=== PATIENT | female | born 1970 | race Caucasian/White ===

== ENCOUNTER 2017-08-26 13:08 | Emergency (ER) | payer OTHER ==
[2017-08-26] MEDS ORDERED: LISI40TAB PO (13:27)
[2017-08-26 15:08] LABS: BASO # 0.1 10^3/uL (0.0-0.2); BASO % 0.6 % (0.0-1.0); EOS # 0.1 10^3/uL (0.0-0.50); EOS % 0.9 % (0.0-3.0); IMMATURE GRANULOCYTE % 0.4 % (0-0); LYMPH # 2.1 10^3/uL (1.5-4.5); LYMPH % 12.6 % (24.0-44.0); MEAN CORPUSCULAR HEMOGLOBIN 28.8 pg (27.0-33.0); MEAN CORPUSCULAR HGB CONC 32.5 g/dl (32.0-36.5); MEAN CORPUSCULAR VOLUME 88.5 fl (80.0-96.0); MONO # 0.8 10^3/uL (0.0-0.8); NEUTROPHILS # 13.1 10^3/uL (1.8-7.7); NEUTROPHILS % 80.5 % (36.0-66.0); PLATELET COUNT, AUTOMATED 384 10^3/uL (150-450); RED CELL DISTRIBUTION WIDTH 14.6 % (11.5-14.5); WHITE BLOOD COUNT 16.2 10^3/uL (4.0-10.0)
[2017-08-26 15:26] LABS: ANION GAP 9 MEQ/L (8-16); BLOOD UREA NITROGEN 8 MG/DL (7-18); CALCIUM LEVEL 8.9 MG/DL (8.5-10.1); CARBON DIOXIDE LEVEL 27 MEQ/L (21-32); CHLORIDE LEVEL 105 MEQ/L (98-107); CREATININE FOR GFR 0.84 MG/DL (0.55-1.02); GLOMERULAR FILTRATION RATE > 60.0 (>58); GLUCOSE, FASTING 100 MG/DL (70-105); POTASSIUM SERUM 4.1 MEQ/L (3.5-5.1); SODIUM LEVEL 141 MEQ/L (136-145)
[2017-08-26] MEDS ORDERED: NS 1,000 ML IV ONE (15:45)
--- NOTE | 2017-08-26 15:58 | REP ---
CT Head without contrast HISTORY: Syncope COMPARISON: None There is no intraparenchymal hemorrhage, acute infarct, mass or midline shift. The ventricular system is normal in appearance. There is no extra cerebral collection. There is no fracture. The visualized sinuses are clear. IMPRESSION: There is no intracranial lesion. Signed by Kwame Osei MD 08/26/2017 03:50 P
[2017-08-26 16:29] VITALS: BP 167/100
[2017-08-26 16:55] LABS: METHADONE URINE NEGATIVE (NEGATIVE)
--- NOTE | 2017-08-26 18:08 | REP ---
CHEST, TWO VIEWS: There is no evidence of acute infiltrate. No pleural effusion is seen. The heart is normal in size. The mediastinal silhouette is unremarkable. The visualized osseous structures are intact. IMPRESSION: No acute pulmonary disease. Signed by Jonah Acharya MD 08/27/2017 05:18 P
--- NOTE | 2017-08-26 18:15 | ECGEPIP ---
Stationary ECG Study [facility] - ED Test Date: 2017-08-26 Pat Name: LUMA MILLAN Department: Room: - Gender: F Machine Installer: sheyla : 1970 Requested By: Marta Acosta Order Number: [id number] Reading MD: Alex Rosa Measurements Intervals [place] Rate: 75 P: 63 [place]: 142 QRS: 55 QRSD: 95 T: 66 QT: 377 QTc: 423 Interpretive Statements SINUS RHYTHM LEFT ATRIAL ENLARGEMENT INC. RBBB NO PRIORS Electronically Signed On 08-26-2017 18:15:25 EDT by Alex Rosa
== END 2017-08-26 17:37 | disposition home or self-care (01) ==
LOC: EDBD 13:08 → M ED 13:08
DX: R55 Syncope and collapse (principal); I51.9 Heart disease, unspecified; I10 Essential (primary) hypertension; F17.200 Nicotine dependence, unspecified, uncomplicated; Z79.899 Other long term (current) drug therapy; Z88.0 Allergy status to penicillin

== ENCOUNTER → 2018-02-24 | Outpatient (REF) | payer OTHER ==
[2018-02-24 17:26] LABS: CHOLESTEROL LEVEL 152 MG/DL (<200); CHOLESTEROL RISK RATIO 5.428 (<5); HDL CHOLESTEROL 28 MG/DL (>40); LDL CHOLESTEROL 98.8 MG/DL (<100); NON-HDL-C 124 MG/DL; TRIGLYCERIDES LEVEL 126 MG/DL (<150)
[2018-02-24 17:39] LABS: TOTAL 25(OH) VITAMIN D 20.7 NG/ML (30.0-100.0)
== END ==
LOC: M SFHCCLAY 12:29
DX: E78.5 Hyperlipidemia, unspecified (principal); E55.9 Vitamin D deficiency, unspecified

== ENCOUNTER → 2018-07-01 | Outpatient (REF) | payer OTHER ==
[2018-07-01 11:42] LABS: HEMATOCRIT 45.3 % (36.0-47.0); MEAN CORPUSCULAR HEMOGLOBIN 29.1 pg (27.0-33.0); MEAN CORPUSCULAR HGB CONC 33.1 g/dl (32.0-36.5); MEAN CORPUSCULAR VOLUME 87.8 fl (80.0-96.0); PLATELET COUNT, AUTOMATED 359 10^3/uL (150-450); RED BLOOD COUNT 5.16 10^6/uL (4.00-5.40); RED CELL DISTRIBUTION WIDTH 14.5 % (11.5-14.5); WHITE BLOOD COUNT 11.1 10^3/uL (4.0-10.0)
[2018-07-01 11:57] LABS: ALBUMIN 3.5 GM/DL (3.2-5.2); ALBUMIN/GLOBULIN RATIO 0.95 (1.00-1.93); ALKALINE PHOSPHATASE 82 U/L (45-117); ALT/SGPT 20 U/L (12-78); ANION GAP 9 MEQ/L (8-16); AST/SGOT 17 U/L (7-37); BILIRUBIN,TOTAL 0.5 MG/DL (0.2-1.0); BLOOD UREA NITROGEN 12 MG/DL (7-18); CALCIUM LEVEL 8.9 MG/DL (8.5-10.1); CARBON DIOXIDE LEVEL 25 MEQ/L (21-32); CHLORIDE LEVEL 108 MEQ/L (98-107); CHOLESTEROL LEVEL 141 MG/DL (<200); CHOLESTEROL RISK RATIO 4.548 (<5); CREATININE FOR GFR 0.84 MG/DL (0.55-1.30); GLOMERULAR FILTRATION RATE > 60.0 (>58); GLUCOSE, FASTING 83 MG/DL (70-100); HDL CHOLESTEROL 31 MG/DL (>40); LDL CHOLESTEROL 87.8 MG/DL (<100); NON-HDL-C 110 MG/DL; POTASSIUM SERUM 4.7 MEQ/L (3.5-5.1); SODIUM LEVEL 142 MEQ/L (136-145); TOTAL PROTEIN 7.2 GM/DL (6.4-8.2); TRIGLYCERIDES LEVEL 111 MG/DL (<150)
[2018-07-01 12:02] LABS: TOTAL 25(OH) VITAMIN D 22.7 NG/ML (30.0-100.0)
== END ==
LOC: M SFHCCLAY 08:30
DX: I10 Essential (primary) hypertension (principal); E78.5 Hyperlipidemia, unspecified; E55.9 Vitamin D deficiency, unspecified
CPT/HCPCS: 80053

== ENCOUNTER → 2019-06-12 | Outpatient (REF) | payer OTHER ==
[~2019-06-12] MED LIST: LISI40TA PO
[2019-06-12 16:39] LABS: HEMATOCRIT 45.6 % (36.0-47.0); HEMOGLOBIN 15.1 g/dl (12.0-15.5); MEAN CORPUSCULAR HEMOGLOBIN 29.1 pg (27.0-33.0); MEAN CORPUSCULAR HGB CONC 33.1 g/dl (32.0-36.5); MEAN CORPUSCULAR VOLUME 87.9 fl (80.0-96.0); PLATELET COUNT, AUTOMATED 340 10^3/uL (150-450); RED BLOOD COUNT 5.19 10^6/uL (4.00-5.40); WHITE BLOOD COUNT 9.9 10^3/uL (4.0-10.0)
[2019-06-12 16:49] LABS: ALBUMIN 3.4 GM/DL (3.2-5.2); ALT/SGPT 22 U/L (12-78); BILIRUBIN,TOTAL 0.4 MG/DL (0.2-1.0); BLOOD UREA NITROGEN 13 MG/DL (7-18); CALCIUM LEVEL 8.4 MG/DL (8.5-10.1); CARBON DIOXIDE LEVEL 24 MEQ/L (21-32); CHLORIDE LEVEL 109 MEQ/L (98-107); CHOLESTEROL LEVEL 172 MG/DL (<200); CHOLESTEROL RISK RATIO 6.142 (<5); CREATININE FOR GFR 0.78 MG/DL (0.55-1.30); GLOMERULAR FILTRATION RATE > 60.0 (>51); GLUCOSE, FASTING 86 MG/DL (70-100); HDL CHOLESTEROL 28 MG/DL (>40); LDL CHOLESTEROL 115 MG/DL (<100); NON-HDL-C 144 MG/DL; POTASSIUM SERUM 4.4 MEQ/L (3.5-5.1); SODIUM LEVEL 140 MEQ/L (136-145); TOTAL PROTEIN 6.8 GM/DL (6.4-8.2); TRIGLYCERIDES LEVEL 146 MG/DL (<150)
[2019-06-12 16:53] LABS: TOTAL 25(OH) VITAMIN D 26.4 NG/ML (30.0-100.0)
== END ==
LOC: M SFHCCLAY 13:15
PROVIDERS: ATTEND Nurse Practitioner Family
DX: I10 Essential (primary) hypertension (principal); E78.5 Hyperlipidemia, unspecified; E55.9 Vitamin D deficiency, unspecified

== ENCOUNTER → 2019-10-09 | Outpatient (REF) | payer OTHER ==
[2019-10-09 16:51] LABS: CHOLESTEROL RISK RATIO 6.793 (<5)
[2019-10-09 17:00] LABS: TOTAL 25(OH) VITAMIN D 27.6 NG/ML (30.0-100.0)
== END ==
LOC: M SFHCCLAY 12:56
PROVIDERS: ATTEND Nurse Practitioner Family
DX: E78.5 Hyperlipidemia, unspecified (principal); E55.9 Vitamin D deficiency, unspecified

== ENCOUNTER → 2020-01-08 | Outpatient (REF) | payer OTHER ==
[2020-01-08 12:19] LABS: ALBUMIN 3.7 GM/DL (3.2-5.2); BILIRUBIN,DIRECT 0.2 MG/DL (0.0-0.2); BILIRUBIN,TOTAL 1.2 MG/DL (0.2-1.0); CHOLESTEROL RISK RATIO 4.185 (<5)
[2020-01-08 13:45] LABS: TOTAL 25(OH) VITAMIN D 32.7 NG/ML (30.0-100.0)
== END ==
LOC: M SFHCCLAY 08:24
PROVIDERS: ATTEND Nurse Practitioner Family
DX: E78.5 Hyperlipidemia, unspecified (principal); E55.9 Vitamin D deficiency, unspecified

== ENCOUNTER → 2020-01-28 | Outpatient (CLI) | payer OTHER ==
--- NOTE | 2020-01-28 15:52 | REP ---
PA and lateral chest: There are no comparisons. The lung cabrera are clear. The cardiac size is normal. The ellie, mediastinum, and skeletal structures are unremarkable. Impression: Negative PA and lateral chest. Electronically Signed by Jonah Jarrett MD 01/28/2020 03:43 P
== END ==
LOC: M CLY 14:59
PROVIDERS: ATTEND Family Medicine
DX: R63.4 Abnormal weight loss (principal); R13.10 Dysphagia, unspecified

== ENCOUNTER → 2020-02-05 | Outpatient (CLI) | payer OTHER ==
[~2020-02-05] MED LIST changes: +E-Z-GAS II EFFERVESCENT PACKET (SODIUM BICARB./CITRIC ACID/SIMETHICONE) As Ordered ONE; +E-Z-HD 98% w/w 340GM SUSP BTL As Ordered ONE; +E-Z-PAQUE 96% w/w SUSP 176GM BTL As Ordered ONE
--- NOTE | 2020-02-05 18:44 | REP ---
AIR CONTRAST ESOPHAGRAM AND UPPER GI The procedure was performed under the direct supervision of Dr. Carson. The images were reviewed with Dr. Carson. The program director scouting film shows no organomegaly or pathological masses. The intestinal gas pattern is nonspecific. There are surgical clips noted in the right upper quadrant. A single view PA chest x-ray is submitted as a program director scouting film. The superior mediastinal structures are midline. Heart size within normal limits. Lungs are clear. There are surgical clips noted in the right upper quadrant. Liquid barium and gas producing granules and given in the erect position as well as liquid barium in the prone oblique positions in order to perform a double contrast esophagram and upper GI examination. The oral and pharyngeal stages of deglutition are unremarkable. In the mid esophagus there is malignant-appearing circumferential mucosal irregularity measuring 4.8 cm long by 5 mm at its narrowest. There is shouldering with some dilation of the esophagus proximally. Recommend endoscopy for further evaluation. There is gastroesophageal reflux demonstrated to below the level of the lakesha. The stomach saldana are normally aligned. The rugal folds are smooth and regular. There is no gastritis neoplasm or ulcer disease. The duodenal saldana are normally aligned. The mucosal folds are smooth and regular. There is no duodenitis pancreatitis peptic ulcer disease or neoplasm. The visualized portion of the proximal small bowel appears normal in course and caliber. Impression: In the mid esophagus there is malignant-appearing, circumferential mucosal irregularity measuring 4.8 cm long by 5 mm at its narrowest. There is shouldering with some dilation of the esophagus proximally. Recommend endoscopy for further evaluation. There is gastroesophageal reflux demonstrated to below the level of the lakesha. 1.6 minutes of fluoroscopy time was utilized for this procedure. Electronically Signed by JUSTIN Worthington 02/05/2020 04:59 P Electronically Signed by Willie Carson MD 02/05/2020 06:30 P
== END ==
LOC: M RAD 08:12
PROVIDERS: ATTEND Family Medicine
DX: R13.10 Dysphagia, unspecified (principal); R63.4 Abnormal weight loss

== ENCOUNTER 2020-02-15 12:03 | Day surgery (SDC) | payer OTHER ==
[~2020-02-15] VITALS: Ht 152.4 cm; Wt 52.1 kg
[~2020-02-15 12:03] MED LIST changes: +ALLE10TA32 PO; +ATEN50TA2 PO; -E-Z-GAS II EFFERVESCENT PACKET (SODIUM BICARB./CITRIC ACID/SIMETHICONE) As Ordered ONE; -E-Z-HD 98% w/w 340GM SUSP BTL As Ordered ONE; -E-Z-PAQUE 96% w/w SUSP 176GM BTL As Ordered ONE; +EQLTAB93 PO; +NS 1,000 ML IV ONE; +OMEP40CA97 PO
[2020-02-15] MEDS ORDERED: propofoL 200 MG/20 ML VIAL As Ordered ONE ×2 (12:54→13:23)
[2020-02-15] MEDS ORDERED: LIDOCAINE 2% INJ 100 MG/5 ML SDV (FOR ANES.) As Ordered ONE (12:54)
--- NOTE | 2020-02-15 13:33 | ROOR ---
Patient Name: Daja Anderson Procedure Date: 02/15/2020 12:53 PM Date of : 1970 Age: 49 Room: [facility] Gender: Female Note Status: Finalized Procedure: Upper GI endoscopy Indications: Dysphagia, Weight loss Providers: Malik Diaz MD Referring MD: Tom Wilkes MD Requesting Provider: Medicines: Monitored Anesthesia Care Complications: No immediate complications. Procedure: Pre-Anesthesia Assessment: - Prior to the procedure, a History and Physical was performed, and patient medications and allergies were reviewed. The patient is competent. The risks and benefits of the procedure and the sedation options and risks were discussed with the patient. All questions were answered and informed consent was obtained. Patient identification and proposed procedure were verified by the physician, the nurse and the anesthesiologist in the procedure room. Mental Status Examination: alert and oriented. Airway Examination: normal oropharyngeal airway and neck mobility. Respiratory Examination: clear to auscultation. CV Examination: normal. Prophylactic Antibiotics: The patient does not require prophylactic antibiotics. Prior Anticoagulants: The patient has taken no previous anticoagulant or antiplatelet agents. ASA Grade Assessment: II - A patient with mild systemic disease. After reviewing the risks and benefits, the patient was deemed in satisfactory condition to undergo the procedure. The anesthesia plan was to use monitored anesthesia care (MAC). Immediately prior to administration of medications, the patient was re-assessed for adequacy to receive sedatives. The heart rate, respiratory rate, oxygen saturations, blood pressure, adequacy of pulmonary ventilation, and response to care were monitored throughout the procedure. The physical status of the patient was re-assessed after the procedure. The Endoscope was introduced through the mouth, and advanced to the second part of duodenum. The Endoscope was introduced through the and advanced to the. The upper GI endoscopy was accomplished without difficulty. The patient tolerated the procedure well. Findings: A large, fungating and ulcerating mass with no bleeding and stigmata of recent bleeding was found in the middle third of the esophagus, 25 to 33 cm from the incisors. The mass was partially obstructing and circumferential. Biopsies were taken with a cold forceps for histology. Verification of patient identification for the specimen was done by the physician and nurse using the patient's name, date and medical record number. Estimated blood loss was minimal. One malignant-appearing, intrinsic severe (stenosis; an endoscope cannot pass) stenosis was found 25 to 33 cm from the incisors. This stenosis measured 5 mm (inner diameter) x 8 cm (in length). The stenosis was traversed after downsizing scope. Biopsies were taken with a cold forceps for histology. There is no endoscopic evidence of salmon-colored mucosa or mass in the lower third of the esophagus. The Z-line was regular and was found 39 cm from the incisors. No gross lesions were noted in the entire examined stomach. The duodenal bulb and second portion of the duodenum were normal. Impression: - Partially obstructing, likely malignant esophageal tumor was found in the middle third of the esophagus. Biopsied. - Malignant-appearing esophageal stenosis. Biopsied. - Z-line regular, 39 cm from the incisors. - No gross lesions in the stomach. - Normal duodenal bulb and second portion of the duodenum. Recommendation: - Patient has a contact number available for emergencies. The signs and symptoms of potential delayed complications were discussed with the patient. Return to normal activities tomorrow. Written discharge instructions were provided to the patient. - Full liquid diet. - Continue present medications. - Await pathology results. - Perform a CT scan (computed tomography) of chest with contrast, abdomen with contrast and pelvis with contrast at appointment to be scheduled. - Refer to an oncologist at the earliest available appointment. - Telephone GI clinic for pathology results in 1 week. - Return to GI clinic in [facility] (address [address], [address], [place], [facility]) in 4 -- 6 weeks. Please call GI clinic @ [phone] for apppointment date and time. - Return to primary care physician. Malik Diaz MD Malik Diaz MD 02/15/2020 1:33:39 PM Electronically signed by Malik Diaz MD Number of Addenda: 0 Note Initiated On: 02/15/2020 12:53 PM Estimated Blood Loss: Estimated blood loss was minimal.
[2020-02-15 13:50] VITALS: BP 146/84
== END 2020-02-15 14:04 | disposition home or self-care (01) ==
LOC: M SDC 12:03
PROVIDERS: ATTEND Internal Medicine Gastroenterology
DX: C15.9 Malignant neoplasm of esophagus, unspecified (principal); R13.10 Dysphagia, unspecified; K22.2 Esophageal obstruction; R63.4 Abnormal weight loss; I10 Essential (primary) hypertension; Z79.899 Other long term (current) drug therapy; F17.218 Nicotine dependence, cigarettes, with other nicotine-induced disorders; K21.9 Gastro-esophageal reflux disease without esophagitis; J45.909 Unspecified asthma, uncomplicated; Z88.0 Allergy status to penicillin

== ENCOUNTER → 2020-02-19 | Outpatient (CLI) | payer OTHER ==
[~2020-02-19] MED LIST changes: +GASTROGRAFIN SOLUTION 30ML (Q9963) As Ordered ONE; +ISOVUE-370 76% 100ML VIAL (Q9967) As Ordered ONE; -NS 1,000 ML IV ONE
[2020-02-19 15:10] LABS: BASO # 0.1 10^3/uL (0.0-0.2); BASO % 0.5 % (0.0-1.0); EOS # 0.2 10^3/uL (0.0-0.5); EOS % 1.8 % (0.0-3.0); HEMATOCRIT 43.6 % (36.0-47.0); HEMOGLOBIN 14.4 g/dl (12.0-15.5); LYMPH # 2.8 10^3/uL (1.5-5.0); LYMPH % 27.6 % (24.0-44.0); MEAN CORPUSCULAR HEMOGLOBIN 29.3 pg (27.0-33.0); MEAN CORPUSCULAR VOLUME 88.6 fl (80.0-96.0); MONO # 0.5 10^3/uL (0.0-0.8); MONO % 5.3 % (0.0-5.0); NEUTROPHILS # 6.5 10^3/uL (1.5-8.5); NEUTROPHILS % 64.5 % (36.0-66.0); PLATELET COUNT, AUTOMATED 320 10^3/uL (150-450); RED BLOOD COUNT 4.92 10^6/uL (4.00-5.40); WHITE BLOOD COUNT 10.1 10^3/uL (4.0-10.0)
[2020-02-19 15:25] LABS: INR 1.13; PROTHROMBIN TIME 14.2 SECONDS (11.8-14.0)
[2020-02-19 15:26] LABS: PARTIAL THROMBOPLASTIN TIME 30.8 SECONDS (25.0-38.4)
[2020-02-19 15:44] LABS: ALBUMIN 3.4 GM/DL (3.2-5.2); ALT/SGPT 17 U/L (12-78); BILIRUBIN,DIRECT 0.1 MG/DL (0.0-0.2); BILIRUBIN,TOTAL 0.5 MG/DL (0.2-1.0); BLOOD UREA NITROGEN 11 MG/DL (7-18); CALCIUM LEVEL 9.3 MG/DL (8.5-10.1); CARBON DIOXIDE LEVEL 28 MEQ/L (21-32); CHLORIDE LEVEL 109 MEQ/L (98-107); CREATININE FOR GFR 0.68 MG/DL (0.55-1.30); FERRITIN 83 NG/ML (8-252); GLOMERULAR FILTRATION RATE > 60.0 (>51); GLUCOSE, FASTING 91 MG/DL (70-100); IRON (FE) 44 UG/DL (50-170); PERCENT SATURATION 17.2 % (13.2-45.0); POTASSIUM SERUM 3.7 MEQ/L (3.5-5.1); SODIUM LEVEL 142 MEQ/L (136-145); TOTAL IRON BINDING CAPACITY 256 UG/DL (250-450); TOTAL PROTEIN 6.6 GM/DL (6.4-8.2)
--- NOTE | 2020-02-19 16:49 | REP ---
Clinical: Dysphasia. Technique: Axial contrast enhanced images from the lung bases to the pubic symphysis using oral (per protocol) and 100 ml Isovue 370 intravenous contrast material with coronal and sagittal re-formations as well as delayed images of the abdomen. Findings: Liver, spleen, pancreas, bilateral adrenal glands and kidneys are normal. Evidence of prior cholecystectomy. The enteric system including stomach, small, and large bowel is without obstruction or acute inflammatory process. Scattered colonic diverticula noted without acute diverticulitis. Pelvis demonstrates normal bladder and age-appropriate uterus/adnexa. No ascites. No adenopathy. No free air. Abdominal aorta and branch vessels demonstrate atherosclerotic changes without aneurysm or dissection. Musculoskeletal structures demonstrate age-related changes without focal acute abnormality. Impression: 1. No acute abdominopelvic pathology appreciated. 2. Scattered colonic diverticula without acute diverticulitis. Electronically Signed by Jose Guadalupe Florian MD 02/19/2020 04:41 P
--- NOTE | 2020-02-19 16:56 | REP ---
Clinical: Dysphagia. Technique: Axial contrast enhanced images from the thoracic inlet to the upper abdomen with coronal and sagittal re-formations using 100 ml Isovue 370 intravenous contrast material. Examination is followed by CT of the abdomen and pelvis. Findings: Lung cabrera are well-aerated and moderate COPD/emphysematous changes are appreciated. No acute focal consolidation, significant nodule, or mass lesion appreciated. No pleural effusion. No pneumothorax. Tracheobronchial tree is patent. No obvious axillary, hilar, or mediastinal adenopathy noted. Mediastinum demonstrates relatively normal age appropriate thoracic aorta, pulmonary vasculature and heart/pericardium. There is mild circumferential thickening of the mid/distal esophagus beginning below the level of the lakesha tapering to normal at the gastroesophageal junction which is nonspecific and possibly related to the patient's symptoms. Surrounding musculoskeletal structures are intact without focal abnormality. Limited upper abdomen demonstrates prior cholecystectomy and normal bilateral adrenal glands. Impression: 1. Short segment of circumferential esophageal thickening without associated pricilla esophageal stranding or obvious adenopathy. Findings may be related to patient's symptoms and should be correlated with physical examination. Consider upper GI examination and/or endoscopy if necessary. 2. Moderate COPD/emphysematous changes. Electronically Signed by Jose Guadalupe Florian MD 02/19/2020 04:48 P
== END ==
LOC: M RAD 14:15
PROVIDERS: ATTEND Internal Medicine Gastroenterology
DX: C15.4 Malignant neoplasm of middle third of esophagus (principal); K57.90 Diverticulosis of intestine, part unspecified, without perforation or abscess without bleeding; R13.10 Dysphagia, unspecified; R63.4 Abnormal weight loss
CPT/HCPCS: 36415; 71260; 74177; 80048; 80076; 82728; 83550; 85025; 85610; 85730; Q9963; Q9967

== ENCOUNTER 2020-03-08 10:47 | Day surgery (SDC) | payer OTHER, SELFPAY ==
[~2020-03-08] VITALS: Ht 152.4 cm; Wt 50.3 kg
[~2020-03-08 10:47] MED LIST changes: -GASTROGRAFIN SOLUTION 30ML (Q9963) As Ordered ONE; -ISOVUE-370 76% 100ML VIAL (Q9967) As Ordered ONE; +LIDOCAINE 1% MDV 20ML VIAL SQ PRN; +LR 1,000 ML IV ONE; +ceFAZolin SOD 2 GM in IV 1 EA IV ONE
[2020-03-08] MEDS ORDERED: BUPIVACAINE HCL 0.25% 30ML VIAL As Ordered ONE (12:36)
[2020-03-08] MEDS ORDERED: HEPARIN SOD (PORCINE) 5000 UNITS/ML VIAL (J1644 PER 1000UNITS) As Ordered ONE (13:01)
[2020-03-08] MEDS ORDERED: LIDOCAINE 1% SDV INJ 30 ML VIAL As Ordered ONE (13:01)
[2020-03-08] MEDS ORDERED: METOCLOPRAMIDE INJ 10MG/2ML VIAL (J2765) As Ordered ONE ×2 (13:43→18:09)
[2020-03-08] MEDS ORDERED: propofoL 200 MG/20 ML VIAL As Ordered ONE (13:43)
[2020-03-08] MEDS ORDERED: dexameTHASONE 4 MG/ML 1ML VIAL (J1100 PER 1MG) As Ordered ONE (13:43)
[2020-03-08] MEDS ORDERED: LIDOCAINE 2% INJ 100 MG/5 ML SDV (FOR ANES.) As Ordered ONE (13:43)
[2020-03-08] MEDS ORDERED: ONDANSETRON 4MG/2ML VIAL (J2405) As Ordered ONE ×2 (13:43→18:18)
[2020-03-08] MEDS ORDERED: MIDAZOLAM INJ 2 MG/2 ML VIAL (J2250) As Ordered ONE (13:43)
[2020-03-08] MEDS ORDERED: fentaNYL 100 MCG/2 ML INJECTION (J3010) As Ordered ONE ×2 (13:43→13:44)
[2020-03-08] MEDS ORDERED: ROCURONIUM BROMIDE 50 MG/5 ML VIAL As Ordered ONE (13:43)
--- NOTE | 2020-03-08 17:20 | REP ---
Partial chest x-ray: Six views. History: Abzufn-Y-Mkyc insertion. Intra procedural images. 8 seconds of fluoroscopy time is reported. Findings: A sequence of six last image hold fluoroscopically obtained spot radiographs of the chest document Zpbald-R-[id number] catheter position. Electronically Signed by Willie Carson MD 03/09/2020 08:57 A
[2020-03-08] MEDS ORDERED: MEPERIDINE INJ 25 MG/ML VIAL (J2175) As Ordered ONE (18:18)
[2020-03-08] MEDS ORDERED: OXYC5SOL11 PO (18:19)
[2020-03-08] MEDS ORDERED: MEPERIDINE INJ 25 MG/ML VIAL (J2175) IV PRN (18:30)
[2020-03-08] MEDS ORDERED: fentaNYL 100 MCG/2 ML INJECTION (J3010) IV PRN (18:30)
[2020-03-08] MEDS ORDERED: oxyCODONE 5MG TAB PO PRN (18:30)
[2020-03-08] MEDS ORDERED: LR 1,000 ML IV SCH (18:30)
[2020-03-08] MEDS ORDERED: ONDANSETRON 4MG/2ML VIAL (J2405) IV PRN (18:30)
[2020-03-08] MEDS ORDERED: METOCLOPRAMIDE INJ 10MG/2ML VIAL (J2765) IV PRN (18:30)
[2020-03-08] MEDS ORDERED: ACETAMINOPHEN 325 MG/10.15 ML UDC PO PRN (19:00)
[2020-03-08] MEDS ORDERED: HYDROcodone/APAP LIQUID 7.5-325MG 15ML UDC (LORTAB ELIXIR) PO PRN (19:00)
[2020-03-08 20:18] VITALS: BP 160/98
[2020-03-08 20:40] VITALS: BP 152/95
[2020-03-08 21:10] VITALS: BP 149/92
--- NOTE | 2020-03-08 21:36 | ECGEPIP ---
[facility] Test Date: 2020-03-08 Pat Name: LUMA MILLAN Department: Room: - Gender: Female Treasury Director: RF : 1970 Requested By: Arsenio Trivedi Order Number: [id number] Reading MD: Josafat Colunga Measurements Intervals [place] Rate: 74 P: 48 [place]: 133 QRS: 54 QRSD: 87 T: 58 QT: 373 QTc: 414 Interpretive Statements SINUS RHYTHM Somewhat low voltages with slow precordial R wave progression Body habitus versus pulmonary disease Not dramatically changed from 08/26/17. Electronically Signed on 03-08-2020 21:35:59 EDT by Josafat Colunga
--- NOTE | 2020-03-09 16:26 | RO ---
DATE OF PROCEDURE: 03/08/2020 PREOPERATIVE DIAGNOSIS: Esophageal carcinoma. POSTOPERATIVE DIAGNOSIS: Esophageal carcinoma. PROCEDURES PERFORMED: 1. Right internal jugular vein Zzjbva-G-Krtk placement with ultrasound and fluoroscopic guidance. 2. Robotic-assisted laparoscopic implantation of an 18-Lao jejunostomy tube. SURGEON: Dr. Segundo ANIMAL SKINNER: JOSE Peacock for the robotic portion of the procedure. ANESTHESIA: General. 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 She is tolerating liquids and her treatment plan is being formulated and is expected to include chemotherapy and radiation. She is now for placement of a right IJ Dcdhnn-Z-Zfwe to support chemotherapy with a jejunostomy feeding tube for nutritional support. DESCRIPTION OF OPERATIVE PROCEDURE The patient was placed supine on the operating table. TEDs and sequentials were utilized. She was placed under general endotracheal anesthesia. Initially, the patient's right neck and upper chest were prepped and draped in a sterile fashion. The ultrasound probe was draped and used to inspect the right neck and a good sized internal jugular vein was identified adjacent to the carotid artery. The patient was tilted to a slight Trendelenburg position. Local anesthesia was achieved with 1% Xylocaine. Under ultrasound guidance an 18 gauge needle was inserted into the vein without difficulty. There was excellent return of blood. The guidewire was placed. The needle was removed. With the guidewire in place, the patient was returned to a flat position and fluoroscopic images confirmed placement of the guidewire into the right side of the heart. The patient was returned to a slight Trendelenburg position. The skin was nicked at the wire insertion site and a peel-away sheath introducer was inserted. The Downhe-X-Wlwl catheter which had been flushed with heparinized saline was then inserted and the sheath removed. The catheter was pulled back to approximately 20 cm at the skin. She was returned to a flat position. With fluoroscopic inspection, the catheter was withdrawn to approximately 15 cm at the skin surface placing the tip of the catheter approximately at the juncture of the superior vena cava and the right atrium. Additional local anesthesia was (cut off) and a transverse incision was made in the infraclavicular fossa and a subcutaneous pocket was created to receive the port. The port was flushed with heparinized saline. The catheter was tunneled down to the port site using the provided tunneler. The catheter was then cut to length and attached to the port using the locking ring. The port was placed into the subcutaneous pocket and the port was sutured at two corners with simple sutures of #3-0 Vicryl. The skin edges were approximated with buried sutures of #3-0 Vicryl. The incisions were both closed with buried #5-0 Vicryl. Steri-Strips were applied. Both wounds were then dressed with small OpSite dressings. The port placed was a Bard port Gxtqej-U-Oyvy product code [id number] and lot number [id number]. At this point, the existing drapes were removed and the patient's abdomen was exposed. The patient's abdomen was prepped and draped in a sterile fashion. The initial incision was slightly below the umbilicus along the midline. Local anesthesia was achieved at each of the incisions as necessary with 0.25% Marcaine. A Veress needle was inserted and after a positive hanging drop test the abdomen was insufflated with carbon dioxide gas. An 8 mm robotic port was placed over a 5 mm scope and advanced through the abdominal wall without difficulty. Initial examination showed a normal-appearing liver with no evidence of metastatic disease. The abdominal peritoneum was smooth and without any abnormalities. There were no adhesions to be seen. A second 8 mm port was placed in the right lower quadrant and a 12 mm port was placed in the medial left lower quadrant with a third 8 mm port in the left lower quadrant laterally. The patient cart of the Da Ivana XI robot was then brought into position and focused on the infraumbilical port as the endoscope port. This was docked and targeting took place in the left upper quadrant. The additional arms were then docked. With the endoscope in the infraumbilical site, a bipolar was placed in the right lower quadrant, endoscopic scissors in the medial left lower quadrant and a grasper in the lateral left (cut off). I then moved to the control console and proceeded with the placement of the jejunostomy tube. Initial inspection was performed of the left upper quadrant. The greater omentum was elevated and moved superiorly. The transverse colon was identified and the proximal jejunum was identified beginning at the ligament of Treitz. A point was selected approximately 20 cm distal to the appearance of the jejunum from the retroperitoneum. I wanted to place the jejunostomy feeding tube as far lateral to the left as possible to allow this to be out of the way of any potential further surgery for her esophageal cancer. By gently lifting of the bowel to the anterior abdominal wall I was able to identify a point where I could attach this just below the costal margin laterally. The jejunum was transected with a firing of a 45 mm robotic stapler with a blue load. The mesentery was partially divided using the cauterizing scissors. The distal end of the bowel was brought up to the abdominal wall and tacked to the abdominal wall with several #3-0 silk sutures. A 5 mm port was placed through the abdominal wall by Marni Joseph as the public relations assistant just superior to where the bowel was attached. The forced bipolar was then inserted into the tip of the 5 mm port and the port was withdrawn. The 18-Lao single-lumen jejunal feeding tube with the balloon was then grasped with the bipolar and pulled into the abdomen. A small opening was made into the small bowel with the endoscopic scissors and the tip of the feeding tube was inserted into the jejunum and advanced approximately [address] the balloon into the small bowel. A pursestring suture of silk was placed around the insertion site of the catheter into the bowel wall. Several additional sutures of #3-0 silk were placed to tack the end of the jejunum to the anterior abdominal wall around the jejunostomy site. The balloon was inflated by Marni Joseph with approximately 5 mL of fluid and pulled up gently with adjustment of the external retention disk. The proximal end of the small bowel was then brought up adjacent to the bowel where it was sutured to the abdominal wall. Several tacking sutures of #3-0 silk were placed. Enterotomies were created in both portions of the bowel and a 45 mm stapler was used to perform an anastomosis with a blue staple load. The residual opening was closed in two layers with a running suture of #3-0 Vicryl and interrupted simple sutures of #3-0 silk. This appeared to give a good secure anastomosis. The mesenteric defect was approximated with several sutures of #3-0 silk. The area was irrigated for a minimal amount of spilled blood and a minimal amount of spilled intestinal fluid. The patient was returned to a flat position from her gentle reverse Trendelenburg and rolled to the right that had been in place for the procedure. The robot was undocked and the instruments were removed. With a handheld endoscope the 12 mm port was removed and a Phoenix-Jim device was used to place a #1-0 Vicryl suture to close the inner fascia and peritoneum. The abdomen was then deflated and the remaining trocars were removed. The incisions were closed with buried sutures of #4-0 Vicryl and Steri-Strips. Light dressings were applied. A drain sponge was placed about the G tube. The patient tolerated the procedure well without apparent complication. She was awakened in the operating room, extubated and moved to the recovery room in stable condition.
== END 2020-03-08 21:25 | disposition home or self-care (01) ==
LOC: M SDC 10:47 → M MS5PR 19:57 → M SDC 21:25
PROVIDERS: ATTEND Surgery
DX: C15.9 Malignant neoplasm of esophagus, unspecified (principal); I10 Essential (primary) hypertension; K21.9 Gastro-esophageal reflux disease without esophagitis; L40.9 Psoriasis, unspecified; J45.909 Unspecified asthma, uncomplicated; Z79.899 Other long term (current) drug therapy
CPT/HCPCS: 36561; 44186; 77002; 93005; C1788; J0690; J1100; J1642; J1644; J2175; J2250; J2405; J2765; J3010

== ENCOUNTER → 2020-03-22 | Outpatient (CLI) | payer OTHER, SELFPAY ==
[~2020-03-22] MED LIST changes: +DEXA4TA PO; +LIDO2.5C15 TOP; -LIDOCAINE 1% MDV 20ML VIAL SQ PRN; -LR 1,000 ML IV ONE; +OXYC5SOL11 PO; +PROC10TA4 PO; -ceFAZolin SOD 2 GM in IV 1 EA IV ONE
--- NOTE | 2020-03-23 15:22 | REP ---
REASON FOR EXAM: Esophageal carcinoma. There are no priors for comparison. Previous CT examination of the chest, 02/19/[address] examination of the abdomen and pelvis 02/19/2020 also reviewed. After the intravenous administration of 8.81 millicuries of FDG18 triplane whole body PET/CT was performed from the skull base to the mid thigh. There is extensive mediastinal hypermetabolic activity seen in the region of the mid esophagus having SUV values of 25.0. This area has a superior and inferior length of approximately 5.4 cm and an anterior to posterior maximal dimension of approximately 1.9 cm and a width of approximately 2.4 cm. This coincides with a previous CT finding of abnormally thickened esophageal saldana and paraesophageal soft tissues. No other areas of abnormal hypermetabolic activity are seen in the neck, chest, abdomen or pelvis. There is a small amount of hypermetabolic activity seen adjacent to the inserted mediport line in the right anterior chest. There is a small amount of hypermetabolic activity seen surrounding a recently inserted PEJ tube. This activity is expected and likely represents post inflammatory activity. IMPRESSION: Abnormal esophageal and paraesophageal hypermetabolic activity as described above. Electronically Signed by Yaakov Anderson DO 03/23/2020 03:52 P
== END ==
LOC: M PLARAD 11:07
PROVIDERS: ATTEND Internal Medicine Hematology & Oncology
DX: C15.4 Malignant neoplasm of middle third of esophagus (principal)
CPT/HCPCS: 78815; A9552

== ENCOUNTER → 2020-03-24 | Outpatient (CLI) | payer OTHER, SELFPAY ==
--- NOTE | 2020-03-25 10:51 | RADONC ---
RADIATION ONCOLOGY CONSULTATION NOTE DATE: 03/24/2020 This is a telemedicine visit. The patient was informed of the risks including security breech, technological failure, inability to perform a comprehensive physical exam which could delay or prevent an accurate diagnosis, and potential complications from treatment decisions rendered over a telemedicine platform. The patient understands and consented to the use of telehealth services phone only. CHART NUMBER: [id number] DIAGNOSIS: Esophageal squamous cell carcinoma. STAGE: In progress. ECOG PERFORMANCE STATUS: Not evaluated. TELEPHONE CONSULTATION NOTE: Ms. 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 She is presenting to me for consideration and discussion of possible neoadjuvant radiation combined with chemotherapy followed by surgical resection. HISTORY OF PRESENT ILLNESS: The patient was in her usual state of health and the end of last year began having some heartburn and dysphasia. She also had weight loss and reports that over the last 3 months or so she has lost 30 pounds. An esophagram was done on 02/05/2020 and revealed a 4.8 cm mass in the mid esophagus. The esophagus was narrowed by 5 mm. On 02/19/2020, CT scans were undertaken of the chest, abdomen and pelvis. The abdomen and pelvis showed no evidence of metastatic disease. The chest CT showed thickening in the mid esophageal area. On 02/16/2020, the patient underwent esophageal biopsy and pathology revealed a moderately differentiated squamous cell carcinoma. Subsequent PET scan done 03/22/2020 revealed an area of hypermetabolic activity in the mid esophagus with an SUV value of 25.0. The lesion measured 5.4 cm in length. The anterior to posterior maximal dimension was 1.9 cm and the width was 2.4 cm. This coincided with the CT findings of the thickened esophageal wall. There was no evidence of distant metastatic disease. The patient has since then undergone placement of a feeding tube and placement of a chemotherapy port. She has been referred to a cardiothoracic surgeon for discussion of resection feasibility. In addition, she has been referred for endoscopic esophageal ultrasound. These have not yet taken place. She is now seeing us for discussion of external beam radiation therapy. PAST MEDICAL HISTORY: The patient's past medical history is positive for asthma and hypertension. She had a cholecystectomy in the past as well as a tubal ligation. She had eardrum surgery in 1995 at the age of 25. ALLERGIES: The patient is allergic to AMOXICILLIN. SOCIAL HISTORY: The patient smokes half-a-pack of cigarettes a day. She drinks alcohol socially. FAMILY HISTORY: The patient's family history is negative for esophageal cancer or other malignancies. REVIEW OF SYSTEMS: The patient's review of systems is positive for difficulty swallowing solid foods. She is using Boost and Ensure. She is not using her feeding tube. She has had a 30 pound weight loss over the past few months. She has some weakness. It is otherwise noncontributory. Denies nausea, vomiting, fevers, chills, night sweats, diplopia, headaches, anxiety or depression, anorexia, visual disturbances, chest pain, urinary or bowel difficulties, bone pain, or neurological problems. PHYSICAL EXAMINATION: Physical examination was clearly deferred at this time as per COVID-19 precautions. This was a telephone consultation. ASSESSMENT: We are waiting of course the consultation for the surgeon to see whether or not we are able to treat this is as a neoadjuvant treatment combined with chemotherapy followed by surgery. Clearly, I think this would be in the patient's best interest in providing highest likelihood of achieving local control and cure. In addition, we are waiting the endoscopic ultrasound for staging purposes. At this time, it does not appear that there is any metastatic disease but the primary site staging and lymph node staging is not completed. At this time, I do believe this patient is a candidate for external beam radiation therapy and I have so informed her. I have discussed with the patient in detail the potential benefits as well as possible acute and chronic sequelae of external beam radiation therapy. We have discussed logistics of treatment planning, simulation and subsequent fractionated daily radiation treatments. I am scheduling the patient for the next available simulation slot and radiation treatments will begin subsequently. We will coordinate her care with her medical oncologist, Dr. Dwight Rivera. We look forward to the expert opinion of her cardiothoracic surgeon as well as the results of her endoscopic ultrasound in the meantime. cc: MD Dwight Mary MD Jack Rush, MD MTDD
== END ==
LOC: M ONCR 14:05
PROVIDERS: ATTEND Radiology Radiation Oncology
DX: C15.9 Malignant neoplasm of esophagus, unspecified (principal); I10 Essential (primary) hypertension; J45.909 Unspecified asthma, uncomplicated; F17.210 Nicotine dependence, cigarettes, uncomplicated

== ENCOUNTER 2020-03-30 10:28 | Outpatient (RCR) | payer OTHER ==
--- NOTE | 2020-03-31 19:03 | RADONC ---
RADIATION ONCOLOGY SIMULATION NOTE DATE: 03/30/2020 CHART NUMBER: [id number] Ms. Anderson was taken to the CT scan for CT simulation of her esophageal field. CT was accomplished without difficulty or discomfort. Radiation treatment planning is underway and radiation treatments will begin subsequently. An immobilization device was created and will be used throughout the course of treatment. It was created without difficulty or discomfort. I was physically present throughout the course of CT simulation.
== END 2020-03-31 ==
LOC: M ONCR 10:28
PROVIDERS: ATTEND Radiology Radiation Oncology
DX: C15.9 Malignant neoplasm of esophagus, unspecified (principal)

== ENCOUNTER 2020-04-29 11:06 | Outpatient (RCR) | payer OTHER ==
[~2020-04-29 11:06] MED LIST changes: +ONDA4TAB6 PO; +ONDA8TAB8 PO
== END 2020-05-01 ==
LOC: M ONCR 11:06
PROVIDERS: ATTEND Radiology Radiation Oncology
DX: C15.9 Malignant neoplasm of esophagus, unspecified (principal)

== ENCOUNTER 2020-05-24 10:59 | Outpatient (RCR) | payer OTHER ==
--- NOTE | 2020-05-08 08:42 | RADONC ---
RADIATION ONCOLOGY DATE: 05/02/2020 CHART NUMBER: [id number] Ms. Anderson is presently at a dose of 1620 cGy to her esophagus and is tolerating treatments fairly well although she is complaining of some heartburn and nausea. She has no other complaints at this time related to her radiation therapy or disease. REVIEW OF SYSTEMS: Positive for some mild nausea and heartburn but is otherwise noncontributory. She denies nausea, vomiting, fevers, chills, night sweats, diplopia, headaches, anxiety or depression, anorexia, weight loss, visual disturbances, chest pain, urinary or bowel difficulties, bone pain, or neurological problems. PHYSICAL EXAMINATION: The patient's skin is in good condition with no evidence of moist or dry desquamation. The remainder of her physical exam remains unchanged. Ms. Rivera tolerating treatments quite well and radiation will continue as scheduled.
--- NOTE | 2020-05-12 23:43 | RADONC ---
RADIATION ONCOLOGY PROGRESS NOTE DATE: 05/09/2020 CHART NUMBER: [id number] Ms. Anderson is presently at a dose of 2520 cGy to her esophagus and is tolerating treatments quite well at this point with no significant difficulties related to her radiation therapy. She is having no pain or discomfort. The patient's review of systems is noncontributory. She denies nausea, vomiting, fevers, chills, night sweats, diplopia, headaches, anxiety or depression, anorexia, weight loss, visual disturbances, chest pain, urinary or bowel difficulties, bone pain, or neurological problems. PHYSICAL EXAMINATION: The patient's skin is in good condition with no evidence of moist or dry desquamation. The remainder of her physical exam remains unchanged. Ms. Anderson is tolerating treatments quite well and radiation will continue as scheduled.
--- NOTE | 2020-05-18 10:26 | RADONC ---
RADIATION ONCOLOGY PROGRESS NOTE DATE: 05/16/2020 CHART NUMBER: [id number] PROGRESS NOTE: Ms. Anderson is presently at a dose of 3420 cGy to her esophagus and is tolerating treatments quite well at this point with no significant difficulties related to her radiation therapy. She reports that she is able to swallow better. She reports she has been eating cereal and actually gaining weight. REVIEW OF SYSTEMS: The patient's review of systems is positive for some discomfort upon swallowing but is otherwise noncontributory. Denies nausea, vomiting, fevers, chills, night sweats, diplopia, headaches, anxiety or depression, anorexia, weight loss, visual disturbances, chest pain, urinary or bowel difficulties, bone pain, or neurological problems. PHYSICAL EXAMINATION: The patient's skin is in good condition with no evidence of moist or dry desquamation. The remainder of her physical exam remains unchanged. Ms. Anderson is tolerating treatments quite well and radiation will continue as scheduled.
[~2020-05-24 10:59] MED LIST changes: +NS 1,000 ML IV ONE
--- NOTE | 2020-05-25 14:22 | RADONC ---
RADIATION ONCOLOGY DATE OF SERVICE: 05/16/2020 Ms. Anderson is a 50-year-old woman who carries the diagnosis of esophageal CA. She is currently on chemo RT. So far, she has received a dose of 4320 cGy in 24 fractions. She is tolerating treatment fairly well. Her swallowing has improved. She gained some weight and her weight in general is stable. REVIEW OF SYSTEMS: She has some mild discomfort with swallowing. She denies nausea, vomiting, fever, chills, diarrhea. Her weight is relatively stable. PHYSICAL EXAMINATION: There is no significant skin changes. Overall she is tolerating treatment very well without unusual side effect. She informed me she is scheduled for CT on 06/16/2020 and she will be evaluated by the surgeon in [place]. JORGE
--- NOTE | 2020-05-27 10:37 | RADONC ---
DATE OF SERVICE: 05/24/2020 Ms. Anderson is a 40-year-old woman who carries the diagnosis of esophageal cancer. Shehas been on concurrent chemo-RT. She started radiation therapy on April 19, 2020 and she received a total dose of 4500 cGY in 25 fractions over 35 elapsed days. She tolerated treatment very well without any unusual side effect. Her swallowing much improved. Actually, she gained a few pounds in the later part of her treatment. She still has some residual discomfort upon swallowing. There is no significant skin changes. She is scheduled for surgical evaluation. She was advised continuous followup care with the physicians involved and she was also asked to return her in one month for check up. JORGE
[2020-06-10] MEDS ORDERED: LIDO2.5C15 TOP (08:50)
== END 2020-05-31 ==
LOC: M ONCR 10:59
PROVIDERS: ATTEND Radiology Radiation Oncology
DX: C15.9 Malignant neoplasm of esophagus, unspecified (principal)

== ENCOUNTER → 2020-06-16 | Outpatient (CLI) | payer OTHER ==
[~2020-06-16] MED LIST changes: +GASTROGRAFIN SOLUTION 30ML (Q9963) As Ordered ONE; +ISOVUE-370 76% 100ML VIAL As Ordered ONE; -NS 1,000 ML IV ONE; +ONDA8TAB10 PO
--- NOTE | 2020-06-16 16:28 | REP ---
REASON FOR EXAM: Followup. Patient has a history of esophageal carcinoma. COMPARISON: Multiple, the latest 02/19/20. CONTRAST: 100 mL Isovue 370. The liver, spleen, pancreas, adrenal glands, and kidneys are again seen to be within normal limits. The patient is status post cholecystectomy. Since the last examination, a PEJ tube has been placed on the left. No free fluid or free air is present. The bowel loops and their mesenteries are otherwise unremarkable. The abdominal aorta and para-aortic regions are unchanged and again seen to be within normal limits. The osseous structures are stable and intact. IMPRESSION: Status post PEJ tube placement. The examination is otherwise unchanged from the prior exam showing no evidence of acute disease. Electronically Signed by Yaakov Anderson DO 06/16/2020 05:01 P
--- NOTE | 2020-06-16 16:38 | REP ---
REASON: History of esophageal carcinoma, followup. Latest prior, 02/19/2020. CONTRAST: 100 mL Isovue-370. No mediastinal or hilar adenopathy has developed. There are no pleural or pericardial effusions. The diffuse mid and lower esophageal wall thickening has lessened but difficult to evaluate with CT since there is no oral contrast distention. A MediPort device has been placed since the last exam, the tip of which is in the superior vena cava. There is no significant change in appearance of the imaged osseous structures. Evaluation of the lung cabrera shows chronic emphysematous changes. These are essentially unchanged. No new abnormal nodules, masses, or opacities have developed. The lung apical regions have not been included on this exam. The reason for that is unknown to me. IMPRESSION: There is some evidence of improvement of the esophageal wall thickening, as described above; however, this needs to be correlated clinically. Review of the technologist's worksheet indicates no evidence of radiation or chemotherapy. Again, this needs clinical evaluation. There is no evidence of acute intrathoracic disease. Findings and limitations as described above. Consider repeat exam to include the lung apical regions, if clinically relevant. Electronically Signed by Yaakov Anderson DO 06/16/2020 05:01 P
--- NOTE | 2020-06-16 16:49 | MEDONCENPD ---
Date/Time of Encounter Date of Encounter: Jun 16, 2020 Time of Encounter: 16:00 Encounter Good reports on CT scans. No evidence of metastatic esophageal carcinoma No activity or issues in abdomen/pelvis. Proceed with plan for espohagectomy ESTELA JACINTO MD Jun 16, 2020 16:49
== END ==
LOC: M RAD 11:40
PROVIDERS: ATTEND Internal Medicine Hematology & Oncology
DX: C15.4 Malignant neoplasm of middle third of esophagus (principal)
CPT/HCPCS: 71260; 74177; Q9963; Q9967

== ENCOUNTER → 2020-06-20 | Outpatient (CLI) | payer OTHER ==
[~2020-06-20] MED LIST changes: -ISOVUE-370 76% 100ML VIAL As Ordered ONE
--- NOTE | 2020-06-20 18:44 | REP ---
Examination Requested: Fluoroscopy guided injection of gastrografin Reason For Exam: Evaluate enterostomy malfunction Small Bowel Follow Through The procedure was performed by JUSTIN Lynn, under the direct supervision of Dr. Carson. The images were reviewed with Dr. Carson. The wire stitcher film shows no organomegaly or pathological masses. The intestinal gas pattern appears normal. There are surgical randa in the right upper quadrant. There is a tube going into the small intestine. Under fluoroscopic guidance. 40 ml of a 50/50 solution of water and gastrografin and was injected via the enterostomy tube. Contrast was seen going through the tube into the small intestine. There is no extravasation of contrast visualized. Impression: 1. Injection of gastrograph and through an enterostomy tube shows the to to be in the small intestine. 0.4 minutes of fluoroscopy time was utilized for this procedure. Some fluoroscopic images are performed with last image hold technology. These images require no additional radiation. Reviewed by JUSTIN Blankenship 06/20/2020 05:30 P Electronically Signed by Willie Carson MD 06/20/2020 06:35 P
== END ==
LOC: M RAD 12:24
PROVIDERS: ATTEND Internal Medicine Gastroenterology
DX: K94.13 Enterostomy malfunction (principal)

== ENCOUNTER → 2020-06-22 | Outpatient (CLI) | payer OTHER ==
[~2020-06-22] MED LIST changes: -GASTROGRAFIN SOLUTION 30ML (Q9963) As Ordered ONE
== END ==
LOC: M ONCR 11:13
PROVIDERS: ATTEND Radiology Radiation Oncology
DX: C15.9 Malignant neoplasm of esophagus, unspecified (principal)

== ENCOUNTER → 2020-08-22 | Outpatient (REF) | payer OTHER ==
[~2020-08-22] MED LIST changes: +CEPH25SS PO; +LOPE1LIQ18 PO; +OXYC1SOL3 PO; +TGTSUS3 FT
[2020-08-22 17:20] LABS: ALBUMIN 2.1 GM/DL (3.2-5.2); ALT/SGPT 25 U/L (12-78); BILIRUBIN,TOTAL 0.3 MG/DL (0.2-1.0); BLOOD UREA NITROGEN 13 MG/DL (7-18); C REACTIVE PROTEIN QUANTITATIV 8.97 MG/DL (0.00-0.30); CALCIUM LEVEL 8.9 MG/DL (8.5-10.1); CARBON DIOXIDE LEVEL 31 MEQ/L (21-32); CHLORIDE LEVEL 102 MEQ/L (98-107); GLOMERULAR FILTRATION RATE > 60.0 (>51); GLUCOSE, FASTING 104 MG/DL (70-100); POTASSIUM SERUM 4.8 MEQ/L (3.5-5.1); SODIUM LEVEL 135 MEQ/L (136-145); TOTAL PROTEIN 6.8 GM/DL (6.4-8.2)
[2020-08-22 18:06] LABS: BASO # 0.1 10^3/uL (0.0-0.2); BASO % 0.4 % (0.0-1.0); EOS # 0.4 10^3/uL (0.0-0.5); EOS % 3.2 % (0.0-3.0); HEMATOCRIT 26.4 % (36.0-47.0); LYMPH # 1.1 10^3/uL (1.5-5.0); LYMPH % 8.7 % (24.0-44.0); MEAN CORPUSCULAR HEMOGLOBIN 27.2 pg (27.0-33.0); MEAN CORPUSCULAR HGB CONC 30.3 g/dl (32.0-36.5); MEAN CORPUSCULAR VOLUME 89.8 fl (80.0-96.0); MONO # 0.9 10^3/uL (0.0-0.8); MONO % 7.5 % (0.0-5.0); NEUTROPHILS # 9.6 10^3/uL (1.5-8.5); NEUTROPHILS % 79.2 % (36.0-66.0); PLATELET COUNT, AUTOMATED 736 10^3/uL (150-450); RED BLOOD COUNT 2.94 10^6/uL (4.00-5.40); WHITE BLOOD COUNT 12.1 10^3/uL (4.0-10.0)
[2020-08-22 19:05] LABS: ERYTHROCYTE SEDIMENTATION RATE 105 mm/hr (0-30)
== END ==
LOC: M LAB REF 16:05
PROVIDERS: ATTEND Internal Medicine Infectious Disease
DX: J86.9 Pyothorax without fistula (principal); Z79.2 Long term (current) use of antibiotics

== ENCOUNTER → 2020-08-29 | Outpatient (REF) | payer OTHER ==
[2020-08-29 17:13] LABS: ALBUMIN 2.5 GM/DL (3.2-5.2); ALT/SGPT 22 U/L (12-78); BILIRUBIN,TOTAL 0.2 MG/DL (0.2-1.0); BLOOD UREA NITROGEN 16 MG/DL (7-18); C REACTIVE PROTEIN QUANTITATIV 7.93 MG/DL (0.00-0.30); CALCIUM LEVEL 9.1 MG/DL (8.5-10.1); CARBON DIOXIDE LEVEL 32 MEQ/L (21-32); CHLORIDE LEVEL 97 MEQ/L (98-107); GLOMERULAR FILTRATION RATE > 60.0 (>51); GLUCOSE, FASTING 94 MG/DL (70-100); POTASSIUM SERUM 4.9 MEQ/L (3.5-5.1); SODIUM LEVEL 133 MEQ/L (136-145); TOTAL PROTEIN 7.9 GM/DL (6.4-8.2)
[2020-08-29 17:14] LABS: BASO # 0.1 10^3/uL (0.0-0.2); BASO % 0.5 % (0.0-1.0); EOS # 0.6 10^3/uL (0.0-0.5); EOS % 5.8 % (0.0-3.0); HEMATOCRIT 31.6 % (36.0-47.0); HEMOGLOBIN 9.4 g/dl (12.0-15.5); LYMPH # 1.2 10^3/uL (1.5-5.0); LYMPH % 11.4 % (24.0-44.0); MEAN CORPUSCULAR HGB CONC 29.7 g/dl (32.0-36.5); MEAN CORPUSCULAR VOLUME 87.3 fl (80.0-96.0); MONO # 0.8 10^3/uL (0.0-0.8); MONO % 7.5 % (0.0-5.0); NEUTROPHILS # 7.8 10^3/uL (1.5-8.5); NEUTROPHILS % 74.2 % (36.0-66.0); PLATELET COUNT, AUTOMATED 754 10^3/uL (150-450); RED BLOOD COUNT 3.62 10^6/uL (4.00-5.40); WHITE BLOOD COUNT 10.5 10^3/uL (4.0-10.0)
[2020-08-29 18:12] LABS: ERYTHROCYTE SEDIMENTATION RATE 116 mm/hr (0-30)
== END ==
LOC: M LAB REF 16:10
PROVIDERS: ATTEND Internal Medicine Infectious Disease
DX: Z79.899 Other long term (current) drug therapy (principal); Z79.2 Long term (current) use of antibiotics

== ENCOUNTER → 2020-09-05 | Outpatient (REF) | payer OTHER ==
[~2020-09-05] MED LIST changes: -CEPH25SS PO
[2020-09-05 17:31] LABS: ALBUMIN 2.5 GM/DL (3.2-5.2); ALT/SGPT 27 U/L (12-78); BILIRUBIN,TOTAL 0.2 MG/DL (0.2-1.0); BLOOD UREA NITROGEN 21 MG/DL (7-18); C REACTIVE PROTEIN QUANTITATIV 4.23 MG/DL (0.00-0.30); CALCIUM LEVEL 9.3 MG/DL (8.5-10.1); CARBON DIOXIDE LEVEL 31 MEQ/L (21-32); CHLORIDE LEVEL 100 MEQ/L (98-107); CREATININE FOR GFR 0.47 MG/DL (0.55-1.30); GLOMERULAR FILTRATION RATE > 60.0 (>51); GLUCOSE, FASTING 91 MG/DL (70-100); POTASSIUM SERUM 4.4 MEQ/L (3.5-5.1); SODIUM LEVEL 138 MEQ/L (136-145); TOTAL PROTEIN 7.4 GM/DL (6.4-8.2)
[2020-09-05 18:09] LABS: BASO # 0.1 10^3/uL (0.0-0.2); BASO % 0.5 % (0.0-1.0); EOS # 0.4 10^3/uL (0.0-0.5); EOS % 4.3 % (0.0-3.0); HEMATOCRIT 31.8 % (36.0-47.0); HEMOGLOBIN 9.5 g/dl (12.0-15.5); LYMPH # 1.4 10^3/uL (1.5-5.0); LYMPH % 14.7 % (24.0-44.0); MEAN CORPUSCULAR HEMOGLOBIN 26.4 pg (27.0-33.0); MEAN CORPUSCULAR HGB CONC 29.9 g/dl (32.0-36.5); MEAN CORPUSCULAR VOLUME 88.3 fl (80.0-96.0); MONO # 0.8 10^3/uL (0.0-0.8); MONO % 8.2 % (0.0-5.0); NEUTROPHILS # 6.8 10^3/uL (1.5-8.5); NEUTROPHILS % 71.9 % (36.0-66.0); PLATELET COUNT, AUTOMATED 665 10^3/uL (150-450); WHITE BLOOD COUNT 9.4 10^3/uL (4.0-10.0)
[2020-09-05 18:38] LABS: ERYTHROCYTE SEDIMENTATION RATE 107 mm/hr (0-30)
== END ==
LOC: M LAB REF 16:05
PROVIDERS: ATTEND Internal Medicine Infectious Disease
DX: J86.9 Pyothorax without fistula (principal); Z79.2 Long term (current) use of antibiotics

== ENCOUNTER → 2020-09-13 | Outpatient (REF) | payer OTHER ==
[2020-09-13 16:13] LABS: BASO # 0.1 10^3/uL (0.0-0.2); EOS # 0.5 10^3/uL (0.0-0.5); EOS % 6.2 % (0.0-3.0); HEMATOCRIT 34.4 % (36.0-47.0); HEMOGLOBIN 10.3 g/dl (12.0-15.5); LYMPH # 1.5 10^3/uL (1.5-5.0); LYMPH % 18.6 % (24.0-44.0); MEAN CORPUSCULAR HEMOGLOBIN 25.9 pg (27.0-33.0); MEAN CORPUSCULAR HGB CONC 29.9 g/dl (32.0-36.5); MEAN CORPUSCULAR VOLUME 86.6 fl (80.0-96.0); MONO # 0.8 10^3/uL (0.0-0.8); MONO % 9.3 % (0.0-5.0); NEUTROPHILS # 5.4 10^3/uL (1.5-8.5); NEUTROPHILS % 64.5 % (36.0-66.0); PLATELET COUNT, AUTOMATED 632 10^3/uL (150-450); RED BLOOD COUNT 3.97 10^6/uL (4.00-5.40); WHITE BLOOD COUNT 8.3 10^3/uL (4.0-10.0)
[2020-09-13 16:44] LABS: ALBUMIN 2.7 GM/DL (3.2-5.2); ALT/SGPT 44 U/L (12-78); BILIRUBIN,TOTAL 0.2 MG/DL (0.2-1.0); BLOOD UREA NITROGEN 21 MG/DL (7-18); C REACTIVE PROTEIN QUANTITATIV 1.72 MG/DL (0.00-0.30); CALCIUM LEVEL 9.6 MG/DL (8.5-10.1); CARBON DIOXIDE LEVEL 31 MEQ/L (21-32); CHLORIDE LEVEL 101 MEQ/L (98-107); CREATININE FOR GFR 0.46 MG/DL (0.55-1.30); ERYTHROCYTE SEDIMENTATION RATE 87 mm/hr (0-30); GLOMERULAR FILTRATION RATE > 60.0 (>51); GLUCOSE, FASTING 81 MG/DL (70-100); POTASSIUM SERUM 4.8 MEQ/L (3.5-5.1); SODIUM LEVEL 137 MEQ/L (136-145); TOTAL PROTEIN 7.6 GM/DL (6.4-8.2)
== END ==
LOC: M LAB REF 15:50
PROVIDERS: ATTEND Internal Medicine Infectious Disease
DX: J86.9 Pyothorax without fistula (principal); Z79.2 Long term (current) use of antibiotics

== ENCOUNTER → 2020-09-16 | Outpatient (CLI) | payer OTHER ==
[~2020-09-16] MED LIST changes: -LOPE1LIQ18 PO; -ONDA8TAB10 PO; -OXYC1SOL3 PO; -TGTSUS3 FT
--- NOTE | 2020-09-16 11:49 | REPVR ---
PROCEDURE INFORMATION: Exam: US Pelvis Complete, Transabdominal and US Pelvis, Transvaginal Exam date and time: 09/16/2020 11:25 AM Age: 50 years old Clinical indication: Screening exam; Evaluate endometrium; Additional info: Pyothorax without fistula TECHNIQUE: Imaging protocol: Real-time transabdominal and transvaginal pelvic ultrasound (complete) with image documentation. Transvaginal imaging was used for better evaluation of the endometrium, adnexa, and/or cervix. COMPARISON: CT ABD PELVIS WITH CONTRAST 06/16/2020 1:15 PM FINDINGS: Uterus/cervix: Uterus measures 6.3 x 3.5 x 5.4 cm. Thickened endometrium measuring 11 mm in diameter. 10 mm anterior wall myometrial fibroid. Right adnexa: Right ovary measures 1.3 x 1.2 x 1.3 cm. Right ovarian blood flow demonstrated. Left adnexa: Left ovary measures 2.0 x 1.1 x 1.6 cm. Left ovarian blood flow demonstrated. Intraperitoneal space: No significant free fluid. Urinary bladder: Nondistended bladder. IMPRESSION: 1. Thickened endometrium measuring 11 mm in diameter. 2. 10 mm anterior wall myometrial fibroid. Electronically signed by: Oskar Mccain On 09/16/2020 11:49:28 AM
== END ==
LOC: M RAD 10:49
PROVIDERS: ATTEND Internal Medicine
DX: Z51.81 Encounter for therapeutic drug level monitoring (principal); Z79.2 Long term (current) use of antibiotics; D25.9 Leiomyoma of uterus, unspecified; R93.89 Abnormal findings on diagnostic imaging of other specified body structures

== ENCOUNTER → 2020-09-19 | Outpatient (REF) | payer OTHER ==
[2020-09-19 17:29] LABS: ALBUMIN 2.8 GM/DL (3.2-5.2); ALT/SGPT 44 U/L (12-78); BILIRUBIN,TOTAL 0.4 MG/DL (0.2-1.0); BLOOD UREA NITROGEN 30 MG/DL (7-18); C REACTIVE PROTEIN QUANTITATIV 0.98 MG/DL (0.00-0.30); CALCIUM LEVEL 9.3 MG/DL (8.5-10.1); CARBON DIOXIDE LEVEL 31 MEQ/L (21-32); CHLORIDE LEVEL 106 MEQ/L (98-107); CREATININE FOR GFR 0.44 MG/DL (0.55-1.30); GLOMERULAR FILTRATION RATE > 60.0 (>51); GLUCOSE, FASTING 92 MG/DL (70-100); POTASSIUM SERUM 4.3 MEQ/L (3.5-5.1); SODIUM LEVEL 139 MEQ/L (136-145); TOTAL PROTEIN 7.3 GM/DL (6.4-8.2)
[2020-09-19 17:44] LABS: BASO # 0.1 10^3/uL (0.0-0.2); BASO % 0.8 % (0.0-1.0); EOS # 0.6 10^3/uL (0.0-0.5); HEMATOCRIT 35.6 % (36.0-47.0); HEMOGLOBIN 10.1 g/dl (12.0-15.5); LYMPH # 1.2 10^3/uL (1.5-5.0); LYMPH % 15.8 % (24.0-44.0); MEAN CORPUSCULAR HEMOGLOBIN 24.9 pg (27.0-33.0); MEAN CORPUSCULAR HGB CONC 28.4 g/dl (32.0-36.5); MEAN CORPUSCULAR VOLUME 87.7 fl (80.0-96.0); MONO # 0.6 10^3/uL (0.0-0.8); MONO % 7.9 % (0.0-5.0); NEUTROPHILS # 5.2 10^3/uL (1.5-8.5); NEUTROPHILS % 67.1 % (36.0-66.0); PLATELET COUNT, AUTOMATED 499 10^3/uL (150-450); RED BLOOD COUNT 4.06 10^6/uL (4.00-5.40); WHITE BLOOD COUNT 7.7 10^3/uL (4.0-10.0)
[2020-09-19 19:03] LABS: ERYTHROCYTE SEDIMENTATION RATE 60 mm/hr (0-30)
== END ==
LOC: M LAB REF 15:52
PROVIDERS: ATTEND Internal Medicine Infectious Disease
DX: Z79.2 Long term (current) use of antibiotics (principal); J86.9 Pyothorax without fistula

== ENCOUNTER → 2020-09-21 | Outpatient (CLI) | payer OTHER ==
[~2020-09-21] MED LIST changes: +ONDA8TAB10 PO
--- NOTE | 2020-09-21 14:17 | RADONC ---
Radiation Oncology Hx/FUP Radiation Oncology Hx/FUP Date of Service: Sep 21, 2020 Pt Identifier Daja Anderson is a 50 year old female seen for a followup visit today at the department of radiation oncology for a history of lower 1/3 esophageal cancer [id number] SCC. She underwent neoadjuvant chemoradiation to 45 Gy in 25 fractions with concurrent carbo/taxol completed 05/24/20. She subsequently underwent an attempted esophagectomy at [facility] in July 2020, which was aborted due to invasion of the spine by tumor a stent was placed, which subsequ ently caused perforation. She underwent emergent surgical management at [facility] for perforation, TEF and esophagopleural fistula. Her cervical esophagus and stomach were resected, a spit fistula was created and a J tube was placed. She was hospitalized through August and since being discharged has been slowly recovering from weight loss and deconditioning. There are currently no firm plans regarding surgical reconstruction (colon interposition?), and her surgical team is now based at [facility]. Diagnosis/Treatment History Oncologic History 1. Diagnostic data: 02/05/2020 upper GI with esophagram showing a mass measuring at least 4.8 centimeters in length 02/15/2020 Revealed a a large,, fungating and ulcerating mass present at approximately 25 to 33 cm from the incisors. The mass was partially obstructing and circumferential. One malignant-appearing, intrinsic severe (stenosis; an endoscope cannot pass) stenosis was found 25 to 33 cm from the incisors. This stenosis measured 5 mm (inner diameter) x 8 cm (in length). The stenosis was traversed after downsizing scope. Biopsies were taken with a cold forceps for histology. 02/15/2020 Esophageal mass biopsy: Invasive squamous cell carcinoma, moderately differentiated 02/19/2020 CT chest showed COPD and esophageal circumferential thickening without associated periesophageal stranding or obvious adenopathy 02/19/2020 CT abdomen and pelvis shows no evidence of metastatic disease with scattered colonic diverticula without diverticulitis 03/22/20 PET/CT Abnormal esophageal and paraesophageal hypermetabolic activity. 2. Neoadjuvant chemoradiotherapy with weekly carboplatin/paclitaxel 04/2020 to 05/24/2020 45 Gy in 25 fractions Remainder as above Interval History Energy levels improving slowly gaining weight, on Jevity 1.5 continuous feeds inching toward goal of 90 ml/hr. She has no chest pain at this time. Still significant SOB on 2L O2 at all times. Sees Dr. Kyle later this week. Sees her surgical team in the coming month. Current Therapy Surveillance Stage [id number]--> [id number] (bone invasion noted on attempted resection) Social History: Former smoker Not drinking at this time Allergies / Meds Allergies: Coded Allergies: Penicillins (Verified Allergy, Intermediate, HIVES, 03/08/20) amoxicillin (Verified Allergy, Intermediate, HIVES, 03/08/20) Home Meds Active Scripts Lidocaine/Prilocaine (Lidocaine-Prilocaine Cream) 2.5%/2.5% Cream..g., 1 DOSE TOP ASDIRECTED, #30 GRAMS 1 Refill Apply dime size to port area. Do not rub in, cover with saran wrap to protect clothing. Prov:KATERINA KYLE MD 06/10/20 Ondansetron (Ondansetron Odt) 8 Mg Tab.rapdis, 8 MG PO TID for nausea/vomiting for 15 Days, #30 TAB 6 Refills Prov:ESTELA JACINTO MD 04/22/20 Ondansetron (Ondansetron Odt) 4 Mg Tab.rapdis, 4 MG PO Q6-8HP PRN for nausea/vomiting, #30 TAB 1 Refill Prov:ESTELA JACINTO MD 04/19/20 Dexamethasone (Dexamethasone) 4 Mg Tablet, 4 MG PO ASDIRECTED, #30 TAB 3 Refills take 2 tabs by mouth daily the day before chemo, the day of chemo, and the day after chemo Prov:ESTELA JACINTO MD 03/16/20 Prochlorperazine Maleate (Prochlorperazine Maleate) 10 Mg Tablet, 10 MG PO Q6H PRN for NAUSEA OR VOMITING, #30 TAB 3 Refills Prov:ESTELA JACINTO MD 03/16/20 Reported Medications Omeprazole (Omeprazole) 40 Mg Capsule.dr, 40 MG PO DAILY, CAP 02/12/20 Review of Systems Review of Systems Constitutional: Reports: Weakness, Weight Loss, Lethargy; Denies: Chills, Fever Eyes: Denies: Pain HEENT: Denies: Head Aches, Sinus Congestion Skin: Denies: Rash Pulmonary: Reports: Dyspnea, Cough, Pleuritic Chest Pain Cardiovascular: Denies: Chest Pain, Edema Gastrointestinal: Denies: Nausea, Vomiting Genitourinary: Denies: Dysuria, Frequency Hematologic: Denies: Bruising, Bleeding Excessively Endocrine: Denies: Polydipsia Musculoskeletal: Denies: Neck pain Neurological: Denies: Numbness, Incoordination, Change in Speech Psych: Reports: Mood Normal; Denies: Thoughts of Self Harm Physical Examination Vital Signs Wt 91lb T 98 P 110 RR 20 BP 145/90 O2 98% Pain 0 Fatigue 2 General Exam: Positive: Alert, Cooperative, No Acute Distress Eye Exam: Positive: PERRLA, EOMI ENT EXAM: Positive: Atraumatic, Pharynx Normal Neck Exam: Positive: Other (Spit fistula in place with ostomy appliance central anterior neck) Chest Exam: Positive: Clear to auscultation, Wheezing Heart Exam: Positive: Rate Normal, Regular Rhythm Abdomen Exam: Positive: Normal bowel sounds, Other (J tube in place, CDI); Negative: Tenderness Extremity Exam: Negative: Edema Skin Exam: Positive: Nl turgor and temperature Neuro Exam: Positive: Normal Gait, Normal Speech, Cranial Nerves 3-12 NL Psych Exam: Positive: Mental status NL, Mood NL Diagnostic and Laboratory Diagnostic Review Radiologic images, relevant labs and pathology reports were personally reviewed and discussed with Ms. Anderson. Assessment and Plan Impression Assessment Ms. Anderson is a 50 year old female with a history of lower 1/3 esophageal cancer [id number] SCC. She underwent neoadjuvant chemoradiation to 45 Gy in 25 fractions with concurrent carbo/taxol completed 05/24/20. She subsequently underwent an attempted esophagectomy at [facility] in July 2020, which was aborted due to invasion of the spine by tumor, a stent was placed, which subsequently caused perforation. She underwent emergent surgical management at [facility] for perforation, TEF and esophagopleural fistula. Her cervical esophagus and stomach were resected, a spit fistula was created and a J tube was placed. She was hospitalized through August and since being discharged has been slowly recovering from weight loss and deconditioning. There are currently no firm plans regarding surgical reconstruction (colon interposition?), and her surgical team is now based at [facility]. She has had a complicated surgical course. Her most recent scans from [facility] done in August 2020 do not reveal any evidence of recurrence, which would be difficult to discern in the setting of postoperative anatomy at any rate. Thankfully she is now gaining weight (magdy by her was in the low 80lb range). She is very happy with her surgical team at [facility] (Dr. Rodriguez). I explained that a plan for re-anastomosis versus additional systemic therapy, given the likelihood that subclinical disease remains, as evidenced by progression on chemoradiation, and non-oncologic surgery, will have to be carefully constructed. She is seeing Dr. Kyle soon which is a good thing. I will see her again in 6 months time and hopefully by then she remains disease free and/or is able to tolerate reconstruction. Performance Status ECOG 2 Plan Follow up in 6 months Defer imaging at this time to Drs. Kyle and Michael Ms. Anderson was encouraged to call with questions or concerns in the interim period. JOSE VELASQUEZ MD Sep 21, 2020 14:17
== END ==
LOC: M ONCR 10:48
PROVIDERS: ATTEND General Practice
DX: Z85.01 Personal history of malignant neoplasm of esophagus (principal); Z92.21 Personal history of antineoplastic chemotherapy

== ENCOUNTER → 2020-10-18 | Outpatient (REF) | payer OTHER ==
[~2020-10-18] MED LIST changes: +LOPE1LIQ18 PO; +OXYC1SOL3 PO; +TGTSUS3 FT
== END ==
LOC: M LAB REF 14:09
PROVIDERS: ATTEND Internal Medicine Medical Oncology
DX: C15.9 Malignant neoplasm of esophagus, unspecified (principal)

== ENCOUNTER → 2021-01-02 | Outpatient (CLI) | payer OTHER ==
[~2021-01-02] MED LIST changes: +CEPH25SS PO; +ISOVUE-370 76% 100ML VIAL As Ordered ONE
--- NOTE | 2021-01-03 09:37 | REP ---
INDICATION: ESO CA COMPARISON: 06/16/2020 TECHNIQUE: Axial contrast enhanced images from the thoracic inlet to the upper abdomen with 100 ml Isovue 370 intravenous contrast material followed by CT of the abdomen and pelvis. Coronal and sagittal reformations obtained. This CT examination was performed using the following dose reduction techniques: Automated exposure control, adjustment of mA and/or kv according to the patient's size, and use of iterative reconstruction technique. FINDINGS: Lung cabrera demonstrate advanced emphysematous disease. Minimal scattered bibasilar fibroatelectatic changes along with trace right basilar atelectasis represent new findings. There is a new 9 mm noncalcified nodule along the perifissural anterior right lower lobe (series 204; image 68) as well as 8 mm noncalcified nodule along the perifissural anterior left lower lobe (series 204; image 72). No effusion. No pneumothorax. Evaluation of the mediastinum demonstrates changes related to prior esophagectomy and gastrectomy. The residual proximal through mid/distal esophagus with subsequent oversewn distal esophageal stump is suggested with mild retained intraluminal fluid and correlation with exact surgical procedure is required. No obvious mediastinal or hilar adenopathy noted. Tracheobronchial tree is patent. Thoracic aorta, pulmonary vasculature, and heart/pericardium appear normal. Surrounding musculoskeletal structures are intact. Gmqaei-R-Nsnq identified with tip in the SVC. IMPRESSION: 1. Two suspicious noncalcified nodules measuring 8-9 mm as described above along with minimal bibasilar fibroatelectatic changes and trace posterior right atelectasis. 2. Stable chronic advanced emphysematous disease. 3. Evidence for prior partial esophagectomy and possible gastrectomy. Small amount of residual fluid in the residual esophagus noted. No obvious middle mediastinal mass to suggest recurrence identified. <Electronically signed by Jose Guadalupe Florian > 01/03/21 0981
--- NOTE | 2021-01-03 09:40 | REP ---
INDICATION: ESO CA. COMPARISON: 06/16/2020 TECHNIQUE: Axial contrast-enhanced images from the lung bases to the pubic symphysis using 100 cc Isovue 370 intravenous contrast material. Delayed images of the abdomen along with coronal and sagittal reformations obtained. This CT examination was performed using the following dose reduction techniques: Automated exposure control, adjustment of mA and/or kv according to the patient's size, and the use of iterative reconstruction technique. FINDINGS: The patient appears to be status post esophagectomy and gastrectomy. The visualized distal portion of the residual esophagus demonstrates small amount of residual intraluminal fluid. Liver, spleen, pancreas, bilateral adrenal glands and kidneys are normal. Evidence for prior cholecystectomy noted. The enteric system demonstrates percutaneous jejunostomy feeding tube in satisfactory position. There is no evidence for bowel obstruction or obvious acute enteric process. Scattered diverticulosis noted without acute diverticulitis. Pelvis demonstrates collapsed bladder and age-appropriate uterus/adnexa. No ascites. No free air. No obvious abdominopelvic or retroperitoneal adenopathy. Atherosclerotic changes to the aorta and vasculature noted without aneurysm. Musculoskeletal structures are intact and without acute osseous abnormality. IMPRESSION: 1. Postsurgical changes including distal esophagectomy and gastrectomy, cholecystectomy, and percutaneous jejunostomy tube placement noted. 2. No obvious evidence for mass lesion, recurrence, metastatic disease, ascites, adenopathy or focal inflammatory stranding. <Electronically signed by Jose Guadalupe Florian > 01/03/21 0916
== END ==
LOC: M RAD 11:50
PROVIDERS: ATTEND Internal Medicine Medical Oncology
DX: C15.9 Malignant neoplasm of esophagus, unspecified (principal); D72.829 Elevated white blood cell count, unspecified
CPT/HCPCS: 71260; 74177; Q9967

== ENCOUNTER → 2021-04-19 | Outpatient (CLI) | payer OTHER ==
[~2021-04-19] MED LIST changes: +ACET-1439 FT; -ISOVUE-370 76% 100ML VIAL As Ordered ONE; +LIDO1CRE42 TOP; -LIDO2.5C15 TOP; -LISI40TA PO; +LISI40TA4 PO; -TGTSUS3 FT
--- NOTE | 2021-04-19 11:14 | REP ---
INDICATION: ESOPHAGEAL CA W/ LOVE'S. COMPARISON: Comparison head CT study is from 26 August 2017.. TECHNIQUE: Axial and sagittal imaging planes are utilized for T1 and T2-weighted scans. Sequences include spin-echo, fast spin echo, FLAIR, and diffusion weighted sequences. Gadolinium enhancement dose is 10 mL of intravenous ProHance. Post gadolinium enhanced T1 fat sat images are acquired in all 3 planes. FINDINGS: No bony calvarial lesion is seen. Craniocervical junction and upper cervical cord are unremarkable. No intraorbital lesion is seen. There is no evidence of significant paranasal sinus disease. Acharya-white differentiation pattern is intact. There is no evidence of intracranial mass lesion. Diffusion-weighted scans show no evidence of restricted diffusion to suggest malignancy. There are 1 or 2 periventricular foci of T2 hyperintensity on FLAIR images consistent with minimal small vessel changes. Post gadolinium enhanced images show enhancement in normal vasculature. No abnormal intracranial enhancement is seen. There is no evidence to suggest intracranial metastatic disease. IMPRESSION: No acute intracranial abnormality. There is no evidence to suggest intracranial metastasis. Minimal small vessel changes. <Electronically signed by Raul Carson > 04/19/21 [id number]
== END ==
LOC: M PLARAD 08:42
PROVIDERS: ATTEND Internal Medicine Medical Oncology
DX: C15.9 Malignant neoplasm of esophagus, unspecified (principal); R51.9 Headache, unspecified

== ENCOUNTER → 2021-05-15 | Outpatient (CLI) | payer OTHER ==
--- NOTE | 2021-05-16 10:52 | REP ---
INDICATION: RESTAGING ESOPHAGEAL CANCER. COMPARISON: Prior PET-CT 03/22/2020. Prior CT chest abdomen and pelvis 03/30/2021 TECHNIQUE: After the intravenous administration of 8.12 mCi of FDG 18 triplane whole-body PET-CT was performed from the skull base to mid thigh. The patient currently receives chemotherapy. FINDINGS: There is hypermetabolic activity now seen at the level of the thyroid cartilage near circumferential and posteriorly near the arytenoid cartilages as well with SUV values of up to 6.15. There are no other areas of abnormal hypermetabolic activity seen in the neck, chest, abdomen, or pelvis. There is rather extensive diffuse hypermetabolism seen in the axial and appendicular skeleton. IMPRESSION: 1. There is new hypermetabolism seen in the neck as described above. The patient has undergone surgical procedures since the prior exam and hypermetabolism could be secondary to that. 2. Likely a chemo reactive change seen in the axial and appendicular skeleton. <Electronically signed by Yaakov Anderson > 05/16/21 2020
== END ==
LOC: M PLARAD 14:03
PROVIDERS: ATTEND Internal Medicine Medical Oncology
DX: C15.9 Malignant neoplasm of esophagus, unspecified (principal)
CPT/HCPCS: 78815; A9552

== ENCOUNTER → 2021-06-08 | Outpatient (CLI) | payer OTHER ==
[~2021-06-08] MED LIST changes: +OMEP40CA4 PO; -OMEP40CA97 PO; +ONDA-84 PO; -ONDA8TAB10 PO; -PROC10TA4 PO; +PROC10TA5 PO
== END ==
LOC: M LABSMTC 12:02
PROVIDERS: ATTEND Anesthesiology
DX: Z01.812 Encounter for preprocedural laboratory examination (principal)

== ENCOUNTER 2021-06-13 13:23 | Day surgery (SDC) | payer OTHER ==
[~2021-06-13] VITALS: Ht 152.4 cm; Wt 53.8 kg
[~2021-06-13 13:23] MED LIST changes: -ONDA-84 PO; +ONDA8TAB10 PO; +PROC10TA4 PO; -PROC10TA5 PO
[2021-06-13] MEDS ORDERED: NS 1,000 ML IV ONE (14:05)
[2021-06-13] MEDS ORDERED: propofoL 200 MG/20 ML VIAL As Ordered ONE (15:05)
--- NOTE | 2021-06-13 15:29 | ROOR ---
Patient Name: Daja Anderson Procedure Date: 06/13/2021 2:47 PM Date of : 1970 Age: 51 Room: [facility] Gender: Female Note Status: Finalized Procedure: Colonoscopy Indications: Screening for colorectal malignant neoplasm Providers: Malik Diaz MD Referring MD: Tom Wilkes MD Requesting Provider: Medicines: Monitored Anesthesia Care Complications: No immediate complications. Procedure: Pre-Anesthesia Assessment: - Prior to the procedure, a History and Physical was performed, and patient medications and allergies were reviewed. The patient is competent. The risks and benefits of the procedure and the sedation options and risks were discussed with the patient. All questions were answered and informed consent was obtained. Patient identification and proposed procedure were verified by the physician, the nurse and the anesthesiologist in the procedure room. Mental Status Examination: alert and oriented. Airway Examination: normal oropharyngeal airway and neck mobility. Respiratory Examination: clear to auscultation. CV Examination: normal. Prophylactic Antibiotics: The patient does not require prophylactic antibiotics. Prior Anticoagulants: The patient has taken no previous anticoagulant or antiplatelet agents. ASA Grade Assessment: II - A patient with mild systemic disease. After reviewing the risks and benefits, the patient was deemed in satisfactory condition to undergo the procedure. The anesthesia plan was to use monitored anesthesia care (MAC). Immediately prior to administration of medications, the patient was re-assessed for adequacy to receive sedatives. The heart rate, respiratory rate, oxygen saturations, blood pressure, adequacy of pulmonary ventilation, and response to care were monitored throughout the procedure. The physical status of the patient was re-assessed after the procedure. The Colonoscope was introduced through the anus and advanced to the terminal ileum, with identification of the appendiceal orifice and IC valve. The colonoscopy was performed without difficulty. The patient tolerated the procedure well. The quality of the bowel preparation was good. The terminal ileum, ileocecal valve, appendiceal orifice, and rectum were photographed. Scope insertion time was 2 minutes. Scope withdrawal time was 9 minutes. The total duration of the procedure was 11 minutes. Findings: The perianal and digital rectal examinations were normal. The terminal ileum appeared normal. Multiple medium-mouthed diverticula were found in the sigmoid colon. There was no evidence of diverticular bleeding. Normal mucosa was found from cecum to descending colon. Non-bleeding external and internal hemorrhoids were found during retroflexion. The hemorrhoids were medium-sized. Impression: - The examined portion of the ileum was normal. - Moderate diverticulosis in the sigmoid colon. There was no evidence of diverticular bleeding. - Normal mucosa from cecum to descending colon. - Non-bleeding external and internal hemorrhoids. - No specimens collected. Recommendation: - Patient has a contact number available for emergencies. The signs and symptoms of potential delayed complications were discussed with the patient. Return to normal activities tomorrow. Written discharge instructions were provided to the patient. - Continue present medications. - Resume prior tube feeding ( at prior rate) today. - Repeat colonoscopy in 10 years for screening purposes. - Return to primary care physician. Procedure Code(s): --- Professional --- G0121, Colorectal cancer screening; colonoscopy on individual not meeting criteria for high risk Diagnosis Code(s): --- Professional --- Z12.11, Encounter for screening for malignant neoplasm of colon K64.8, Other hemorrhoids K57.30, Diverticulosis of large intestine without perforation or abscess without bleeding CPT copyright 2019 [employer] [employer]. All rights reserved. The codes documented in this report are preliminary and upon certified professional coder review may be revised to meet current compliance requirements. Malik Diaz MD Malik Diaz MD 06/13/2021 3:28:36 PM Electronically signed by Malik Diaz MD Number of Addenda: 0 Note Initiated On: 06/13/2021 2:47 PM Estimated Blood Loss: Estimated blood loss: none.
[2021-06-13 15:30] VITALS: BP 150/86
[2021-06-14] MEDS ORDERED: CEPH25SS PO (10:54)
== END 2021-06-13 15:46 | disposition home or self-care (01) ==
LOC: M OPP 13:23
PROVIDERS: ATTEND Internal Medicine Gastroenterology
DX: Z12.11 Encounter for screening for malignant neoplasm of colon (principal); K57.30 Diverticulosis of large intestine without perforation or abscess without bleeding; K64.8 Other hemorrhoids; Z79.891 Long term (current) use of opiate analgesic; Z79.899 Other long term (current) drug therapy; Z92.21 Personal history of antineoplastic chemotherapy; Z88.0 Allergy status to penicillin; Z88.1 Allergy status to other antibiotic agents; Z91.018 Allergy to other foods

== ENCOUNTER → 2021-08-02 | Outpatient (CLI) | payer OTHER ==
[~2021-08-02] MED LIST changes: +ISOVUE-370 76% 100ML VIAL As Ordered ONE
--- NOTE | 2021-08-03 09:37 | REP ---
INDICATION: ESO CA F/U COMPARISON: 03/30/2021 TECHNIQUE: Axial contrast enhanced images from the thoracic inlet to the upper abdomen with coronal and sagittal reformations using 100 ml Isovue 370 intravenous contrast material. Examination was followed by CT of the abdomen and pelvis. This CT examination was performed using the following dose reduction techniques: Automated exposure control, adjustment of mA and/or kv according to the patient's size, and use of iterative reconstruction technique. FINDINGS: Evidence for prior esophagectomy and gastric pull-through procedure remains stable in appearance with fluid filling the alena esophagus through the mediastinum. Mediastinum is otherwise grossly normal/stable and without evidence for adenopathy or abnormal fluid. The bilateral lung cabrera again demonstrate advanced COPD/emphysematous disease. Small scattered nodularity and scarring unchanged. No new acute consolidation, suspicious nodule or mass. No effusion. No pneumothorax. Musculoskeletal structures are intact. Lqyeas-H-Sdax identified with tip in the SVC. IMPRESSION: Prior esophagectomy and gastric pull-through appears stable. Advanced emphysematous changes and scattered scarring again noted. No acute mediastinal or pleuroparenchymal process, and no evidence for metastatic disease. <Electronically signed by Jose Guadalupe Florian > 08/03/21 0956
--- NOTE | 2021-08-03 10:33 | REP ---
INDICATION: ESO CA F/U. COMPARISON: 03/30/2021 TECHNIQUE: Axial contrast-enhanced images from the lung bases to the pubic symphysis using 100 cc Isovue 370 intravenous contrast material. Coronal and sagittal reformations obtained along with delayed images of the abdomen. This CT examination was performed using the following dose reduction techniques: Automated exposure control, adjustment of mA and/or kv according to the patient's size, and the use of iterative reconstruction technique. FINDINGS: Liver, spleen, pancreas, bilateral adrenal glands and kidneys are normal. Evidence for prior cholecystectomy with compensatory biliary dilatation. The patient is status post esophagectomy and gastrectomy along with percutaneous jejunostomy tube placement. There is no evidence for bowel obstruction or acute inflammatory process. Colonic diverticulosis noted without acute diverticulitis... Pelvis demonstrates normal bladder and age-appropriate uterus/adnexa. No ascites. No free air. No intraperitoneal or retroperitoneal adenopathy. Atherosclerotic changes to the abdominal aorta including short segment of occlusion involving the left common iliac artery with downstream reconstitution. Musculoskeletal structures are intact and without acute osseous abnormality. IMPRESSION: 1. Prior esophagectomy and gastrectomy with due Raegan ostomy feeding tube placement. 2. No obvious evidence for recurrence or metastatic disease. No ascites. No adenopathy. 3. 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 <Electronically signed by Jose Guadalupe Florian > 08/03/21 [id number]
== END ==
LOC: M RAD 14:18
PROVIDERS: ATTEND Internal Medicine Medical Oncology
DX: C15.4 Malignant neoplasm of middle third of esophagus (principal); Z93.1 Gastrostomy status; Z90.49 Acquired absence of other specified parts of digestive tract; I70.0 Atherosclerosis of aorta; I70.8 Atherosclerosis of other arteries
CPT/HCPCS: 71260; 74177; Q9967

== ENCOUNTER → 2021-08-14 | Outpatient (CLI) | payer OTHER ==
[~2021-08-14] MED LIST changes: -ISOVUE-370 76% 100ML VIAL As Ordered ONE
--- NOTE | 2021-08-14 10:27 | PFTRPT ---
Height: 60.00 Inches Weight: 125.00 Lbs BSA: 1.53 Diagnosis: K22.3 DATE: 08/14/2021 ORDERING PHYSICIAN: Dr. Iggy Rodriguez Pre and post bronchodilator studies have excellent technical quality. Forced vital capacity is reduced. FEV1 is in proportion. Obstructive index is therefore normal. Expiratory limit of the flow-volume loop does suggest restrictive impairment but suboptimal effort cannot be ruled out. No significant bronchodilator response is identified. The total lung capacity is actually less than the forced maneuver. Diffusing capacity is severely reduced but is appropriate for alveolar volume and No hemoglobin available for correction. IMPRESSION: Suspect at least some degree of a restrictive ventilatory impairment. Please correlate clinically. MTDD
== END ==
LOC: M CARPUL 09:55
PROVIDERS: ATTEND Thoracic Surgery (Cardiothoracic Vascular Surgery)
DX: K22.3 Perforation of esophagus (principal)

== ENCOUNTER → 2021-11-07 | Outpatient (CLI) | payer OTHER ==
[~2021-11-07] MED LIST changes: +ISOVUE-370 76% 100ML VIAL As Ordered ONE
--- NOTE | 2021-11-08 06:36 | REP ---
INDICATION: C15.4 ESOPHAGEAL CA COMPARISON: 08/02/2021, 03/30/2021 TECHNIQUE: Axial contrast enhanced images from the thoracic inlet to the upper abdomen with coronal and sagittal reformations using 75 ml Isovue 370 intravenous contrast material. This CT examination was performed using the following dose reduction techniques: Automated exposure control, adjustment of mA and/or kv according to the patient's size, and use of iterative reconstruction technique. FINDINGS: Postsurgical changes along the anterior subcutaneous tissue of the neck and postsurgical changes of the esophagus/stomach with some residual tubular fluid-filled presumed portion of the esophagus noted and terminating with suture material just above the level of the diaphragmatic hiatus. There is no obvious continuity with residual stomach or bowel below the diaphragm and correlation with exact surgical procedure report is required. Further evaluation of the mediastinum demonstrates no obvious mass or adenopathy. The thyroid gland is relatively normal. The tracheobronchial tree is patent and normal. Thoracic aorta, pulmonary vasculature, and heart/pericardium appear normal. Un Lteylb-P-Racs is identified with its tip terminating in the proximal superior vena cava just below the thoracic inlet. The lung cabrera demonstrate extensive emphysematous disease and scattered primarily basilar scarring. There is a small stable 6 mm nodule along the anterobasilar aspect of the right major fissure (series 204; image 75) which remains stable through 01/02/2021. Smaller elements of suspected subpleural scarring remains stable as well. No obvious acute consolidation, new suspicious nodule or mass lesion to suggest metastatic disease identified. No effusion. No pneumothorax. Surrounding musculoskeletal structures are intact and without acute osseous abnormality. IMPRESSION: 1. Postsurgical changes to the mediastinum as described above appear essentially stable. No mediastinal recurrent mass or adenopathy. 2. Lung cabrera demonstrate advanced emphysematous disease and scattered chronic changes. No evidence for acute pulmonary metastasis. <Electronically signed by Jose Guadalupe Florian > 11/08/21 0680
--- NOTE | 2021-11-08 06:48 | REP ---
INDICATION: C15.4 ESOPHAGEAL CA. COMPARISON: 08/02/2021, 03/30/2021 TECHNIQUE: Axial contrast-enhanced images from the lung bases to the pubic symphysis using 100 cc Isovue 370 intravenous contrast material. Delayed images of the abdomen along with coronal and sagittal reformations obtained.. This CT examination was performed using the following dose reduction techniques: Automated exposure control, adjustment of mA and/or kv according to the patient's size, and the use of iterative reconstruction technique. FINDINGS: Liver, spleen, pancreas, bilateral adrenal glands and kidneys are normal. There is evidence for prior esophagectomy and gastrectomy with percutaneous enterostomy tube in satisfactory position. There is no evidence for bowel obstruction or acute inflammatory process. There is no evidence for upper abdominal adenopathy or obvious recurrent mass/metastatic disease. Pelvis demonstrates normal bladder and age-appropriate uterus/adnexa. No ascites. No free air. No intraperitoneal or retroperitoneal adenopathy. 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 Musculoskeletal structures are intact and without acute osseous abnormality. IMPRESSION: 1. Evidence for prior gastrectomy and subsequent percutaneous enterostomy tube in satisfactory position. 2. No evidence for recurrence or metastatic disease. No ascites. No adenopathy. <Electronically signed by Jose Guadalupe Florian > 11/08/21 9521
== END ==
LOC: M RAD 13:24
PROVIDERS: ATTEND Internal Medicine Medical Oncology
DX: C15.4 Malignant neoplasm of middle third of esophagus (principal); Z93.1 Gastrostomy status
CPT/HCPCS: 71260; 74177; Q9967

== ENCOUNTER → 2022-04-27 | Outpatient (CLI) | payer OTHER ==
[~2022-04-27] MED LIST changes: -ISOVUE-370 76% 100ML VIAL As Ordered ONE; +ONDA-84 PO; -ONDA8TAB10 PO; -PROC10TA4 PO; +PROC10TA5 PO
== END ==
LOC: M WHC 09:46
PROVIDERS: ATTEND Internal Medicine Medical Oncology
DX: Z12.31 Encounter for screening mammogram for malignant neoplasm of breast (principal)

== ENCOUNTER → 2022-08-28 | Outpatient (POV) | payer OTHER ==
[~2022-08-28] VITALS: Ht 152.4 cm; Wt 64.5 kg
[~2022-08-28] MED LIST changes: +FLUC100T3 PO; +NYST1POW9 TOP; +SULF20OR PO
[2022-08-28 08:35] VITALS: BP 135/98
== END ==
LOC: M IRPOV 08:27
PROVIDERS: ATTEND Radiology Diagnostic Radiology
DX: Z01.89 Encounter for other specified special examinations (principal)

== ENCOUNTER → 2022-09-04 | Outpatient (CLI) | payer OTHER ==
[~2022-09-04] MED LIST changes: +ISOVUE-370 76% 100ML VIAL As Ordered ONE
== END ==
LOC: M RAD 13:43
PROVIDERS: ATTEND Internal Medicine Medical Oncology
DX: C15.9 Malignant neoplasm of esophagus, unspecified (principal); Z90.49 Acquired absence of other specified parts of digestive tract
CPT/HCPCS: 71260; 74177; Q9967

== ENCOUNTER → 2022-10-01 | Outpatient (CLI) | payer OTHER ==
[~2022-10-01] MED LIST changes: -ISOVUE-370 76% 100ML VIAL As Ordered ONE
== END ==
LOC: M CARPUL 08:47
PROVIDERS: ATTEND Thoracic Surgery (Cardiothoracic Vascular Surgery)
DX: C15.9 Malignant neoplasm of esophagus, unspecified (principal)
CPT/HCPCS: 78815; 94060; 94726; 94729; A9552

== ENCOUNTER → 2023-01-14 | Outpatient (REF) | payer OTHER ==
[2023-01-14 15:11] LABS: BASO % 0.3 % (0.0-1.0); EOS % 0.2 % (0.0-3.0); HEMATOCRIT 26.9 % (36.0-47.0); HEMOGLOBIN 7.5 g/dl (12.0-15.5); LYMPH # 0.9 10^3/uL (1.5-5.0); LYMPH % 7.6 % (24.0-44.0); MEAN CORPUSCULAR HEMOGLOBIN 25.3 pg (27.0-33.0); MEAN CORPUSCULAR HGB CONC 27.9 g/dl (32.0-36.5); MEAN CORPUSCULAR VOLUME 90.6 fl (80.0-96.0); MONO # 0.7 10^3/uL (0.0-0.8); MONO % 6.1 % (2.0-8.0); NEUTROPHILS # 9.9 10^3/uL (1.5-8.5); NEUTROPHILS % 85.3 % (36.0-66.0); PLATELET COUNT, AUTOMATED 652 10^3/uL (150-450); RED BLOOD COUNT 2.97 10^6/uL (4.00-5.40); WHITE BLOOD COUNT 11.6 10^3/uL (4.0-10.0)
[2023-01-14 15:45] LABS: ALBUMIN 1.8 G/DL (3.2-5.2); ALKALINE PHOSPHATASE 91 U/L (46-116); ALT/SGPT 24 U/L (7.0-40); AST/SGOT 30 U/L (<34); BILIRUBIN,TOTAL < 0.2 MG/DL (0.3-1.2); BLOOD UREA NITROGEN 9 MG/DL (9-23); CALCIUM LEVEL 7.4 MG/DL (8.5-10.1); CARBON DIOXIDE LEVEL 27 MMOL/L (20-31); CHLORIDE LEVEL 108 MMOL/L (98-107); CREATININE FOR GFR 0.35 MG/DL (0.55-1.30); GLOMERULAR FILTRATION RATE > 60.0 (>51); GLUCOSE, FASTING 120 MG/DL (60-100); POTASSIUM SERUM 3.9 MMOL/L (3.5-5.1); SODIUM LEVEL 140 MMOL/L (136-145); TOTAL PROTEIN 5.9 G/DL (5.7-8.2)
== END ==
LOC: M LAB REF 14:31
PROVIDERS: ATTEND Internal Medicine Infectious Disease
DX: R18.8 Other ascites (principal); B95.2 Enterococcus as the cause of diseases classified elsewhere; Z79.2 Long term (current) use of antibiotics; A49.8 Other bacterial infections of unspecified site

== ENCOUNTER → 2023-01-22 | Outpatient (REF) | payer OTHER ==
[2023-01-22 16:22] LABS: BASO # 0.1 10^3/uL (0.0-0.2); BASO % 0.8 % (0.0-1.0); EOS # 0.2 10^3/uL (0.0-0.5); EOS % 3.1 % (0.0-3.0); HEMATOCRIT 29.2 % (36.0-47.0); HEMOGLOBIN 8.1 g/dl (12.0-15.5); LYMPH # 1.2 10^3/uL (1.5-5.0); LYMPH % 15.8 % (24.0-44.0); MEAN CORPUSCULAR HEMOGLOBIN 24.3 pg (27.0-33.0); MEAN CORPUSCULAR HGB CONC 27.7 g/dl (32.0-36.5); MEAN CORPUSCULAR VOLUME 87.7 fl (80.0-96.0); MONO # 0.7 10^3/uL (0.0-0.8); MONO % 9.3 % (2.0-8.0); NEUTROPHILS # 5.3 10^3/uL (1.5-8.5); NEUTROPHILS % 70.6 % (36.0-66.0); PLATELET COUNT, AUTOMATED 494 10^3/uL (150-450); RED BLOOD COUNT 3.33 10^6/uL (4.00-5.40); WHITE BLOOD COUNT 7.5 10^3/uL (4.0-10.0)
[2023-01-22 17:30] LABS: ALBUMIN 2.1 G/DL (3.2-5.2); ALKALINE PHOSPHATASE 94 U/L (46-116); ALT/SGPT 37 U/L (7.0-40); AST/SGOT 40 U/L (<34); BILIRUBIN,TOTAL 0.3 MG/DL (0.3-1.2); BLOOD UREA NITROGEN 11 MG/DL (9-23); CALCIUM LEVEL 7.4 MG/DL (8.5-10.1); CARBON DIOXIDE LEVEL 28 MMOL/L (20-31); CHLORIDE LEVEL 102 MMOL/L (98-107); GLUCOSE, FASTING 123 MG/DL (60-100); POTASSIUM SERUM 3.9 MMOL/L (3.5-5.1); SODIUM LEVEL 135 MMOL/L (136-145)
[2023-01-22 20:17] LABS: CREATININE FOR GFR 0.35 MG/DL (0.55-1.30); GLOMERULAR FILTRATION RATE > 60.0 (>51)
== END ==
LOC: M LAB REF 15:08
PROVIDERS: ATTEND Internal Medicine Infectious Disease
DX: R18.8 Other ascites (principal); A49.8 Other bacterial infections of unspecified site; B95.2 Enterococcus as the cause of diseases classified elsewhere; Z79.2 Long term (current) use of antibiotics

== ENCOUNTER → 2023-01-27 | Outpatient (REF) | payer OTHER ==
[2023-01-27 15:59] LABS: BASO # 0.1 10^3/uL (0.0-0.2); BASO % 0.7 % (0.0-1.0); EOS # 0.4 10^3/uL (0.0-0.5); EOS % 4.1 % (0.0-3.0); HEMATOCRIT 30.9 % (36.0-47.0); HEMOGLOBIN 8.5 g/dl (12.0-15.5); LYMPH # 1.2 10^3/uL (1.5-5.0); LYMPH % 13.1 % (24.0-44.0); MEAN CORPUSCULAR HEMOGLOBIN 23.5 pg (27.0-33.0); MEAN CORPUSCULAR HGB CONC 27.5 g/dl (32.0-36.5); MEAN CORPUSCULAR VOLUME 85.6 fl (80.0-96.0); MONO # 0.8 10^3/uL (0.0-0.8); MONO % 9.2 % (2.0-8.0); NEUTROPHILS # 6.6 10^3/uL (1.5-8.5); NEUTROPHILS % 72.7 % (36.0-66.0); PLATELET COUNT, AUTOMATED 557 10^3/uL (150-450); RED BLOOD COUNT 3.61 10^6/uL (4.00-5.40); WHITE BLOOD COUNT 9.1 10^3/uL (4.0-10.0)
[2023-01-27 16:34] LABS: ALBUMIN 2.4 G/DL (3.2-5.2); ALKALINE PHOSPHATASE 104 U/L (46-116); ALT/SGPT 31 U/L (7.0-40); AST/SGOT 34 U/L (<34); BILIRUBIN,TOTAL 0.3 MG/DL (0.3-1.2); BLOOD UREA NITROGEN 10 MG/DL (9-23); CALCIUM LEVEL 7.7 MG/DL (8.5-10.1); CARBON DIOXIDE LEVEL 28 MMOL/L (20-31); CHLORIDE LEVEL 104 MMOL/L (98-107); CREATININE FOR GFR 0.34 MG/DL (0.55-1.30); GLOMERULAR FILTRATION RATE > 60.0 (>51); GLUCOSE, FASTING 102 MG/DL (60-100); POTASSIUM SERUM 4.2 MMOL/L (3.5-5.1); SODIUM LEVEL 139 MMOL/L (136-145); TOTAL PROTEIN 6.2 G/DL (5.7-8.2)
== END ==
LOC: M LAB REF 15:47
PROVIDERS: ATTEND Internal Medicine Infectious Disease
DX: R18.8 Other ascites (principal); B95.2 Enterococcus as the cause of diseases classified elsewhere; Z79.2 Long term (current) use of antibiotics

== ENCOUNTER → 2023-02-14 | Outpatient (CLI) | payer OTHER ==
[~2023-02-14] MED LIST changes: +E-Z-GAS II EFFERVESCENT PACKET (SODIUM BICARB./CITRIC ACID/SIMETHICONE) As Ordered ONE; +E-Z-HD 98% w/w 340GM SUSP BTL As Ordered ONE; +E-Z-PAQUE 96% w/w SUSP 176GM BTL As Ordered ONE
== END ==
LOC: M RAD 08:32
PROVIDERS: ATTEND Nurse Practitioner Family
DX: C15.4 Malignant neoplasm of middle third of esophagus (principal)

== ENCOUNTER → 2023-07-10 | Outpatient (CLI) | payer OTHER ==
[~2023-07-10] VITALS: Ht 149.9 cm; Wt 52.3 kg
[~2023-07-10] MED LIST changes: +CLAR1TAB13 PO; -E-Z-GAS II EFFERVESCENT PACKET (SODIUM BICARB./CITRIC ACID/SIMETHICONE) As Ordered ONE; -E-Z-HD 98% w/w 340GM SUSP BTL As Ordered ONE; -E-Z-PAQUE 96% w/w SUSP 176GM BTL As Ordered ONE; -LIDO1CRE42 TOP; +LIDO30CR18 TOP; +LIDOCAINE W/EPINEPHRINE 1% 20ML VIAL As Ordered ONE; +MIDAZOLAM INJ 2MG/2ML VIAL As Ordered ONE; +VANCOMYCIN 1000MG/20ML VIAL As Ordered ONE; +fentaNYL 100 MCG/2 ML INJECTION As Ordered ONE
[2023-07-10 07:26] VITALS: TEMP 97.4
[2023-07-10 10:30] VITALS: BP 165/89; O2SAT 96
== END ==
LOC: M IRPRO 07:10
PROVIDERS: ATTEND Internal Medicine Medical Oncology
DX: C15.9 Malignant neoplasm of esophagus, unspecified (principal)
CPT/HCPCS: 36590; 99152; 99153; J2250; J3010

== ENCOUNTER → 2023-10-29 | Outpatient (CLI) | payer MEDICARE, OTHER ==
[~2023-10-29] MED LIST changes: +GASTROGRAFIN SOLUTION 30ML As Ordered ONE; +ISOVUE-370 76% 100ML VIAL As Ordered ONE; -LIDOCAINE W/EPINEPHRINE 1% 20ML VIAL As Ordered ONE; -MIDAZOLAM INJ 2MG/2ML VIAL As Ordered ONE; +MULT1CHW29 PO; -VANCOMYCIN 1000MG/20ML VIAL As Ordered ONE; -fentaNYL 100 MCG/2 ML INJECTION As Ordered ONE
== END ==
LOC: M RAD 09:09
PROVIDERS: ATTEND Internal Medicine Hematology & Oncology
DX: C15.9 Malignant neoplasm of esophagus, unspecified (principal); K44.9 Diaphragmatic hernia without obstruction or gangrene; J44.9 Chronic obstructive pulmonary disease, unspecified
CPT/HCPCS: 71260; 74177; Q9963; Q9967

== ENCOUNTER → 2023-11-12 | Outpatient (CLI) | payer OTHER ==
[~2023-11-12] MED LIST changes: -GASTROGRAFIN SOLUTION 30ML As Ordered ONE; -ISOVUE-370 76% 100ML VIAL As Ordered ONE
== END ==
LOC: M WHC 12:31
PROVIDERS: ATTEND Internal Medicine Hematology & Oncology
DX: Z12.31 Encounter for screening mammogram for malignant neoplasm of breast (principal); Z85.3 Personal history of malignant neoplasm of breast

== ENCOUNTER → 2024-02-18 | Outpatient (CLI) | payer OTHER, MEDICARE | LOC: M ONCM 14:39 | PROVIDERS: ATTEND Dietitian, Registered | DX: C15.9 Malignant neoplasm of esophagus, unspecified (principal); Z71.3 Dietary counseling and surveillance; Z68.1 Body mass index [BMI] 19.9 or less, adult; Z92.21 Personal history of antineoplastic chemotherapy; Z92.3 Personal history of irradiation ==

== ENCOUNTER → 2024-02-18 | Outpatient (CLI) | payer MEDICARE ==
[~2024-02-18] MED LIST changes: +GASTROGRAFIN SOLUTION 30ML As Ordered ONE; +ISOVUE-370 76% 100ML VIAL As Ordered ONE
== END ==
LOC: M RAD 13:59
PROVIDERS: ATTEND Internal Medicine Medical Oncology
DX: C15.9 Malignant neoplasm of esophagus, unspecified (principal)
CPT/HCPCS: 71260; 74177; Q9963; Q9967

== ENCOUNTER → 2024-05-20 | Outpatient (CLI) | payer OTHER, MEDICARE ==
[~2024-05-20] MED LIST changes: +ONDA-282 PO; +ONDA-284 PO; -ONDA4TAB6 PO; -ONDA8TAB8 PO
== END ==
LOC: M RAD 13:52
PROVIDERS: ATTEND Internal Medicine Medical Oncology
DX: C15.9 Malignant neoplasm of esophagus, unspecified (principal)
CPT/HCPCS: 71260; 74177; Q9963; Q9967

== ENCOUNTER → 2024-08-20 | Outpatient (CLI) | payer MEDICARE | LOC: M RAD 08:50 | PROVIDERS: ATTEND Internal Medicine Hematology & Oncology | DX: C15.9 Malignant neoplasm of esophagus, unspecified (principal); J44.9 Chronic obstructive pulmonary disease, unspecified | CPT/HCPCS: 71260; 74177; Q9963; Q9967 ==

== ENCOUNTER → 2024-09-23 | Outpatient (CLI) | payer MEDICARE ==
[~2024-09-23] MED LIST changes: -GASTROGRAFIN SOLUTION 30ML As Ordered ONE; -ISOVUE-370 76% 100ML VIAL As Ordered ONE
== END ==
LOC: M RAD 14:17
PROVIDERS: ATTEND Internal Medicine Hematology & Oncology
DX: C15.9 Malignant neoplasm of esophagus, unspecified (principal)

== ENCOUNTER → 2024-10-09 | Outpatient (REF) | payer MEDICARE ==
[~2024-10-09] MED LIST changes: +NYST1POW3 TOP; -NYST1POW9 TOP
[2024-10-09 12:41] LABS: BASO # 0.1 10^3/uL (0.0-0.2); BASO % 0.8 % (0.0-1.0); EOS # 0.2 10^3/uL (0.0-0.5); EOS % 2.8 % (0.0-3.0); HEMATOCRIT 44.2 % (36.0-47.0); HEMOGLOBIN 14.9 g/dl (12.0-15.5); LYMPH # 2.4 10^3/uL (1.5-5.0); LYMPH % 33.3 % (24.0-44.0); MEAN CORPUSCULAR HEMOGLOBIN 30.9 pg (27.0-33.0); MEAN CORPUSCULAR HGB CONC 33.7 g/dl (32.0-36.5); MEAN CORPUSCULAR VOLUME 91.7 fl (80.0-96.0); MONO # 0.4 10^3/uL (0.0-0.8); MONO % 6.2 % (2.0-8.0); NEUTROPHILS % 56.8 % (36.0-66.0); PLATELET COUNT, AUTOMATED 330 10^3/uL (150-450); RED BLOOD COUNT 4.82 10^6/uL (4.00-5.40); WHITE BLOOD COUNT 7.1 10^3/uL (4.0-10.0)
[2024-10-09 13:10] LABS: ALBUMIN 3.3 G/DL (3.2-5.2); ALKALINE PHOSPHATASE 169 U/L (35-104); ALT/SGPT 44 U/L (7.0-40); AST/SGOT 34 U/L (<34); BLOOD UREA NITROGEN 8 MG/DL (9-23); CALCIUM LEVEL 9.2 MG/DL (8.5-10.1); CARBON DIOXIDE LEVEL 26 MMOL/L (20-31); CHLORIDE LEVEL 109 MMOL/L (98-107); CHOLESTEROL LEVEL 144 MG/DL (<200); CHOLESTEROL RISK RATIO 2.65 (<5); CREATININE FOR GFR 0.57 MG/DL (0.55-1.30); GLOMERULAR FILTRATION RATE > 60.0 (>51); GLUCOSE, FASTING 72 MG/DL (60-100); HDL CHOLESTEROL 54.3 MG/DL (>40); LDL CHOLESTEROL 75.5 MG/DL (<100); NON-HDL-C 89.7 MG/DL; POTASSIUM SERUM 4.3 MMOL/L (3.5-5.1); SODIUM LEVEL 142 MMOL/L (136-145); THYROID STIMULATING HORMONE 2.446 uIU/ML (0.55-4.78); TRIGLYCERIDES LEVEL 71 MG/DL (<150)
[2024-10-09 13:11] LABS: FREE T4 1.09 NG/DL (0.89-1.76); TOTAL 25(OH) VITAMIN D 28.4 NG/ML (20.0-100.0)
[2024-10-09 13:13] LABS: HEMOGLOBIN A1c 5.5 % (4.0-6.0)
== END ==
LOC: M SFHCCLAY 11:31
PROVIDERS: ATTEND Nurse Practitioner Family
DX: I10 Essential (primary) hypertension (principal); E78.5 Hyperlipidemia, unspecified; E55.9 Vitamin D deficiency, unspecified; Z79.899 Other long term (current) drug therapy

== ENCOUNTER → 2024-11-13 | Outpatient (CLI) | payer MEDICARE | LOC: M WHC 13:31 | PROVIDERS: ATTEND Nurse Practitioner Family | DX: Z12.31 Encounter for screening mammogram for malignant neoplasm of breast (principal); R92.323 Mammographic fibroglandular density, bilateral breasts ==

== ENCOUNTER → 2024-12-16 | Outpatient (REF) | payer MEDICARE | LOC: M SFHCWAGY 10:08 | PROVIDERS: ATTEND Specialist | DX: R93.89 Abnormal findings on diagnostic imaging of other specified body structures (principal) ==

== ENCOUNTER → 2024-12-24 | Outpatient (CLI) | payer MEDICARE | LOC: M RAD 08:56 | PROVIDERS: ATTEND Nurse Practitioner Family | DX: R79.89 Other specified abnormal findings of blood chemistry (principal); Z90.49 Acquired absence of other specified parts of digestive tract ==

== ENCOUNTER → 2025-01-11 | Outpatient (CLI) | payer MEDICARE ==
[~2025-01-11] MED LIST changes: +ISOVUE-370 76% 100ML VIAL As Ordered ONE
== END ==
LOC: M RAD 09:46
PROVIDERS: ATTEND Nurse Practitioner Women's Health
DX: C15.9 Malignant neoplasm of esophagus, unspecified (principal); J44.9 Chronic obstructive pulmonary disease, unspecified; J98.4 Other disorders of lung
CPT/HCPCS: 71260; 74177; Q9967

== ENCOUNTER → 2025-02-12 | Outpatient (REF) | payer MEDICARE ==
[~2025-02-12] MED LIST changes: -ISOVUE-370 76% 100ML VIAL As Ordered ONE
[2025-02-16 13:57] LABS: HPV APTIMA Not Detected (Not Detected)
== END ==
LOC: M SFHCWAGY 15:18
PROVIDERS: ATTEND Specialist
DX: Z12.4 Encounter for screening for malignant neoplasm of cervix (principal)
CPT/HCPCS: 87624; G0123

== ENCOUNTER → 2025-07-12 | Outpatient (CLI) | payer MEDICARE ==
[~2025-07-12] MED LIST changes: +AZIT20SS PO; +ISOVUE-370 76% 100 ML VIAL As Ordered ONE; +LISI40TA10 PO; -LISI40TA4 PO
== END ==
LOC: M RAD 08:40
PROVIDERS: ATTEND Nurse Practitioner Women's Health
DX: C15.4 Malignant neoplasm of middle third of esophagus (principal); R59.0 Localized enlarged lymph nodes; J43.9 Emphysema, unspecified; R91.1 Solitary pulmonary nodule
CPT/HCPCS: 71260; 74177; Q9967

== ENCOUNTER → 2025-09-08 | Outpatient (REF) | payer MEDICARE ==
[~2025-09-08] MED LIST changes: -ISOVUE-370 76% 100 ML VIAL As Ordered ONE
[2025-09-08 15:05] LABS: BASO # 0.1 10^3/uL (0.0-0.2); BASO % 0.8 % (0.0-1.0); EOS # 0.3 10^3/uL (0.0-0.5); EOS % 3.3 % (0.0-3.0); LYMPH # 2.6 10^3/uL (1.5-5.0); LYMPH % 30.5 % (24.0-44.0); MONO # 0.4 10^3/uL (0.0-0.8); MONO % 5.2 % (2.0-8.0); NEUTROPHILS # 5.1 10^3/uL (1.5-8.5); NEUTROPHILS % 60.0 % (36.0-66.0); PLATELET COUNT, AUTOMATED 332 10^3/uL (150-450)
[2025-09-08 15:14] LABS: ALT/SGPT 12 U/L (7.0-40); AST/SGOT 20 U/L (<34); CALCIUM LEVEL 8.5 MG/DL (8.5-10.1); CARBON DIOXIDE LEVEL 28 MMOL/L (20-31); CHLORIDE LEVEL 105 MMOL/L (98-107); CHOLESTEROL LEVEL 128 MG/DL (<200); CHOLESTEROL RISK RATIO 2.78 (<5); CREATININE FOR GFR 0.68 MG/DL (0.55-1.30); FREE T4 1.20 NG/DL (0.89-1.76); GLOMERULAR FILTRATION RATE > 90.0 (>51); LDL CHOLESTEROL 63.5 MG/DL (<100); NON-HDL-C 82.1 MG/DL; POTASSIUM SERUM 4.6 MMOL/L (3.5-5.1); SODIUM LEVEL 143 MMOL/L (136-145); TRIGLYCERIDES LEVEL 93 MG/DL (<150)
[2025-09-08 16:48] LABS: ESTIMATED AVERAGE GLUCOSE 114.0 MG/DL (60-110)
== END ==
LOC: M SFHCCLAY 08:52
PROVIDERS: ATTEND Nurse Practitioner Family
DX: J44.9 Chronic obstructive pulmonary disease, unspecified (principal); C15.9 Malignant neoplasm of esophagus, unspecified; R93.89 Abnormal findings on diagnostic imaging of other specified body structures; I10 Essential (primary) hypertension; E78.5 Hyperlipidemia, unspecified

== ENCOUNTER → 2025-10-12 | Outpatient (REF) | payer MEDICARE ==
[2025-10-12 13:54] LABS: BASO # 0.1 10^3/uL (0.0-0.2); BASO % 1.1 % (0.0-1.0); EOS # 0.2 10^3/uL (0.0-0.5); EOS % 2.3 % (0.0-3.0); LYMPH # 2.4 10^3/uL (1.5-5.0); LYMPH % 34.6 % (24.0-44.0); MONO # 0.5 10^3/uL (0.0-0.8); MONO % 7.3 % (2.0-8.0); NEUTROPHILS # 3.8 10^3/uL (1.5-8.5); NEUTROPHILS % 54.4 % (36.0-66.0); PLATELET COUNT, AUTOMATED 356 10^3/uL (150-450)
[2025-10-12 14:15] LABS: ALT/SGPT 13 U/L (7.0-40); AST/SGOT 24 U/L (<34); CALCIUM LEVEL 8.6 MG/DL (8.5-10.1); CARBON DIOXIDE LEVEL 29 MMOL/L (20-31); CHLORIDE LEVEL 105 MMOL/L (98-107); CREATININE FOR GFR 0.74 MG/DL (0.55-1.30); GLOMERULAR FILTRATION RATE > 90.0 (>51); POTASSIUM SERUM 4.7 MMOL/L (3.5-5.1); SODIUM LEVEL 141 MMOL/L (136-145)
[2025-10-12 14:17] LABS: VITAMIN B12 LEVEL 365 PG/ML (211-911)
== END ==
LOC: M LABDRAWC 13:03
PROVIDERS: ATTEND Internal Medicine Medical Oncology
DX: C15.9 Malignant neoplasm of esophagus, unspecified (principal)

== ENCOUNTER → 2025-11-15 | Outpatient (CLI) | payer MEDICARE | LOC: M WHC 09:50 | PROVIDERS: ATTEND Internal Medicine Medical Oncology | DX: Z12.31 Encounter for screening mammogram for malignant neoplasm of breast (principal) ==